=== PATIENT | female | born 2000 | race Caucasian/White ===

== ENCOUNTER 2023-11-14 15:10 | Emergency (ER) | payer OTHER, SELFPAY ==
[2023-11-14 15:16] VITALS: BP 129/87; PULSE 90; TEMP 36.9; O2SAT 97; BMI 41.3
--- NOTE | 2023-11-14 15:20 | ED.GENADUL1 ---
HPI HPI - General Adult General Chief complaint: Extremity Problem, Nontraumatic Stated complaint: UPPER EXTREMITY PAIN Time Seen by Provider: 11/14/23 15:14 Source: patient and family Mode of arrival: walk-in Limitations: no limitations History of Present Illness HPI narrative: Patient is a 23-year-old female who is presenting to the ER with chief complaint Left wrist pain for several months. Patient is not working. Patient is at bedside. Patient has a smaller baby at home. Patient went to an urgent care over a month ago for evaluation. Patient was given Star wrap, told to do ice, anti-inflammatories, and follow-up. Patient's having no pain or improvement to left wrist, she's having pains her carpal tunnel and also to the dorsal aspect of her left wrist and hand as well. Patient has not seen an orthopedic surgeon. Patient has no PCP. Patient is presenting to the Emergency Room today because she has no follow-up and is still having pain. Patient is right-hand dominant. No other acute complaints. Patient have intermittent pain radiating down her left hand and upper left forearm. No swelling, no ecchymosis. All systems are negative except as noted/marked. All systems reviewed and otherwise negative. Nurses note and vital signs reviewed and patient is not hypoxic. General: The patient appears well and in no apparent distress. Patient is resting comfortably on cart. Patient is not toxic, lethargic, or listless Skin: Warm, dry, no pallor noted. There is no rash noted. No petechiae, purpura. Head: Normocephalic, atraumatic Eye: Normal conjunctiva, no drainage, EOMI. PERRL Ears, Nose, Mouth, and Throat: oral mucosa is moist. Nares patent. Mouth without vesicles. Cardiovascular: Regular Rate and Rhythm, no murmur, gallop, rub Respiratory: Patient is in no distress, no accessory muscle use, lungs are clear to auscultation, no wheezing, rales or rhonchi Back: non-tender, GI: Obese, soft, no tenderness Musculoskeletal: Patient has full range of motion of all of the extremities, no motor, sensory, or focal neurological deficits Paresthesias to left hand and wrist. Positive Tinel's sign, positive Phalen sign. Patient does have pain and intermittent paresthesias along median nerve distribution. Full range of motion of left shoulder and elbow no difficulty. No pain ulnar groove on the left. Normal cap refill all 5 fingers left hand. No ecchymosis or swelling to left wrist. No pain to the anatomical snuffbox or axial loading of left thumb. Neurological: A&O x4, normal speech Psychiatric: Cooperative Related Data Previous Rx's ?Medication ?Instructions ?Recorded methylprednisolone 4 mg tablets in 4 mg PO DAILY 6 days #21 ea 11/14/23 a dose pack (Medrol (Ketan)) Allergies Allergy/AdvReac Type Severity Reaction Status Date / Time Penicillins AdvReac Mild Verified 11/14/23 15:15 Opioid HPI Opioid Management Most Recent Opioid Data: No Data to Display Exam Constitutional Vital Signs, click to edit/add: Last Vital Signs Temp 98.5 F 11/14/23 15:16 Pulse 88 11/14/23 16:38 Resp 18 11/14/23 16:38 BP 126/88 11/14/23 16:38 Pulse Ox 98 11/14/23 16:38 O2 Del Method Room Air 11/14/23 15:16 Course Vital Signs Vital signs: Vital Signs Temperature 98.5 F 11/14/23 15:16 Pulse Rate 90 11/14/23 15:16 Respiratory Rate 18 11/14/23 15:16 Blood Pressure 129/87 11/14/23 15:16 Pulse Oximetry 97 11/14/23 15:16 Oxygen Delivery Method Room Air 11/14/23 15:16 Temperature 98.5 F 11/14/23 15:16 Pulse Rate 88 11/14/23 16:38 Respiratory Rate 18 11/14/23 16:38 Blood Pressure 126/88 11/14/23 16:38 Pulse Oximetry 98 11/14/23 16:38 Oxygen Delivery Method Room Air 11/14/23 15:16 Medical Decision Making MDM Narrative Medical decision making narrative: Procedure note: patient was placed in left upper wrist splint. Splint was assisted with . the patient was neurovascularly intact before and after the splint was placed. the affected bones/injured area had proper alignment in a splint. Education on splint care at home was given at bedside. Patient and family have no questions at discharge. Patient was educatted using ice, anti-inflammatories. Patient had an appointment made for Dr. Guerra on Thursday at 11 AM. Patient was placed on a Medrol Dosepak. Patient was told that she must use ice, and stretching exercises with this will not get better. Patient understands importance of following up with orthopedic surgeon on Thursday and how maximiliano she is to follow-up with orthopedic surgeon in 2 days. Patient said that she will be at that appointment. Discharge Plan Discharge Stand Alone Forms: Portal Instructions Chief Complaint: Extremity Problem, Nontraumatic Clinical Impression: Carpal tunnel syndrome on left, Pain in left wrist Patient Disposition: Home, Self-Care Time of Disposition Decision: 16:36 Condition: Fair Prescriptions / Home Meds: New methylprednisolone [Medrol (Ketan)] 4 mg tablets,dose pack 4 mg PO DAILY 6 Days Qty: 21 0RF Rx Instructions: as directed Print Language: Martiniquais Instructions: Wrist Injury (ED), Carpal Tunnel Syndrome (DC) Additional Instructions: You have an appointment at 11:[address] Guerra Continue ice 20 minutes on, 20 minutes off. Use your wrist splint until following up with orthopedic surgery. A Medrol Dosepak was ordered to attempt to help with pain and inflammation. You need to see orthopedic surgery for definitive treatment. Referrals: CESIA FELIX [Primary Care Provider] - 1 week Vineet Guerra MD [Physician] - 1 week Discharge Date/Time: 11/14/23 16:46
[2023-11-14 16:38] VITALS: BP 126/88; PULSE 88; O2SAT 98
== END 2023-11-14 16:46 | disposition home or self-care (01) ==
PROVIDERS: Emergency Provider Emergency Medicine; PCP Internal Medicine
DX: G56.02 Carpal tunnel syndrome, left upper limb (principal); M25.532 Pain in left wrist; E66.9 Obesity, unspecified; Z68.41 Body mass index [BMI] 40.0-44.9, adult
CPT/HCPCS: 99283

== ENCOUNTER 2023-11-16 12:54 | Outpatient (OUT) | payer OTHER, SELFPAY ==
--- NOTE | 2023-11-16 | XR_ITS ---
The [address] [address] Patient Name: LATONYA MUIR MRN: [id number] date: 2000 Sex: F Assigned Patient Location: Current Patient Location: Accession/Order Number: [id number] Exam Date: 11/16/2023 12:59 Report Date: 11/16/2023 14:15 At the request of: MARYJANE KATZ Procedure: XR wrist LT min 3V EXAM: XR wrist LT min 3V HISTORY: LEFT WRIST PAIN COMPARISON: None. TECHNIQUE: 3 views of the left wrist were obtained. FINDINGS: There is no evidence of an acute fracture or dislocation. No significant osseous abnormality is identified. Ulnar minus variance is present. The joint spaces are intact throughout the wrist. No abnormal soft tissue calcifications are present. XR/XR wrist LT min 3V IMPRESSION: No acute fracture or dislocation. The joint spaces are intact. Electronically authenticated by: RAFIQ COTTO Date: 11/16/2023 14:15
== END 2023-11-16 12:55 | disposition home or self-care (01) ==
LOC: EC 12:54
PROVIDERS: PCP Internal Medicine; Visit Provider Orthopaedic Surgery
DX: M25.532 Pain in left wrist (principal)
CPT/HCPCS: 73110

== ENCOUNTER 2023-12-23 14:30 | Emergency (ER) | payer OTHER, SELFPAY ==
[2023-12-23 14:35] VITALS: BP 106/92; PULSE 102; TEMP 36.8; O2SAT 98; BMI 41.3
--- NOTE | 2023-12-23 14:42 | ED.LOWEXI1 ---
HPI HPI - Extremity Injury (Lower) General Chief Complaint: Extremity Injury, Lower Stated Complaint: LOWER EXTREMITY PAIN, LEFT Time Seen by Provider: 12/23/23 14:31 Limitations: no limitations History of Present Illness HPI Narrative: Patient is a 23-year-old female who presents to the emergency department for left leg pain after falling yesterday. She states she was walking [place] of [place] when her left leg slid, she sustained a superficial abrasion to the right anterior leg but states that her left leg bent back beneath her and she hyperextended at the knee. She complains of pain over the left hamstring and left posterior knee. In order to demonstrate her injury, patient stands at the bedside on both legs equally and is able to ambulate, extend and flex the leg with no difficulty. She has no concern for . She had no other associated injuries. No medications taken prior to arrival. Related Data Previous Rx's ?Medication ?Instructions ?Recorded methylprednisolone 4 mg tablets in 4 mg PO DAILY 6 days #21 ea 11/14/23 a dose pack (Medrol (Keatn)) ketorolac 10 mg tablet 10 mg PO TID PRN pain #10 tabs 12/23/23 methocarbamol 750 mg tablet 750 mg PO TID PRN pain #20 tabs 12/23/23 Allergies Allergy/AdvReac Type Severity Reaction Status Date / Time Penicillins AdvReac Mild Verified 11/14/23 15:15 Opioid HPI Opioid Management Most Recent Pain and Opioid Data: Last ED Pain Assessment 12/23/23 14:47 Review of Systems ROS Constitutional Denies: fever or chills Ears, nose, mouth, and throat Denies: throat pain or nasal congestion Cardiovascular Denies: chest pain Respiratory Denies: shortness of breath or cough Gastrointestinal Denies: nausea or vomiting Musculoskeletal Reports: extremity pain and limited range of motion; Denies: back pain, neck pain, extremity swelling or joint pain Integumentary/Breast Denies: rash Neurological Denies: headache Hematologic/Lymphatic Denies: easy bruising or easy bleeding Allergic/Immunologic Denies: hives Exam Narrative Exam Narrative: Gen.: Awake, alert, in no distress Head: Normocephalic, atraumatic ENT: Moist mucous membranes Respiratory: No respiratory distress Extremities: Patient stands at the bedside on her right leg and fully extends the left leg out in front of her with painful flexion at the left hip and knee. No obvious deformity or shortening of the hamstring. No swelling of the thigh noted. No bony tenderness of the left anterior knee or tibia. No obvious deformity. Faint abrasion noted to the right anterior tibia Psych: Normal mood and affect Neuro: No focal neuro deficit Skin: Warm, dry, intact Constitutional Vital Signs, click to edit/add: Last Vital Signs Temp 98.2 F 12/23/23 14:35 Pulse 102 H 12/23/23 14:35 Resp 18 12/23/23 14:35 BP 106/92 H 12/23/23 14:35 Pulse Ox 98 12/23/23 14:35 O2 Del Method Room Air 12/23/23 14:35 Course Vital Signs Vital signs: Vital Signs Temperature 98.2 F 12/23/23 14:35 Pulse Rate 102 H 12/23/23 14:35 Respiratory Rate 18 12/23/23 14:35 Blood Pressure 106/92 H 12/23/23 14:35 Pulse Oximetry 98 12/23/23 14:35 Oxygen Delivery Method Room Air 12/23/23 14:35 Temperature 98.2 F 12/23/23 14:35 Pulse Rate 102 H 12/23/23 14:35 Respiratory Rate 18 12/23/23 14:35 Blood Pressure 106/92 H 12/23/23 14:35 Pulse Oximetry 98 12/23/23 14:35 Oxygen Delivery Method Room Air 12/23/23 14:35 MDM - Extremity Injury (Lower) MDM Narrative Medical decision making narrative: Patient with no evidence of fracture or dislocation. Patient placed in an Star wrap of the left knee and remains neurovascularly intact. Rest, ice, elevate. Exam is consistent with hamstring strain. Follow-up with orthopedics if symptoms persist, no indication of neurodeficit or complete muscle tear at this time. Medical Records Attestation: I reviewed the patient's medical records. Imaging Data xr tib/fib: Attestation: I have reviewed the pertinent imaging results. Radiologist's impression: ITS Impressions Femur X-Ray 12/23/23 14:45 IMPRESSION: 1. No acute bone abnormality or significant degenerative joint disease. Electronically authenticated by: MARYJANE NICHOLS Date: 12/23/2023 15:39 Tibia/Fibula X-Ray 12/23/23 14:45 IMPRESSION: 1. No acute bone abnormality or significant degenerative joint disease. Electronically authenticated by: MARYJANE NICHOLS Date: 12/23/2023 15:39 Discharge Plan Discharge Stand Alone Forms: Portal Instructions Chief Complaint: Extremity Injury, Lower Clinical Impression: Left hamstring muscle strain, Hyperextension injury of left knee Patient Disposition: Home, Self-Care Time of Disposition Decision: 15:51 Condition: Good Prescriptions / Home Meds: New ketorolac 10 mg tablet 10 mg PO TID PRN (Reason: pain) Qty: 10 0RF methocarbamol 750 mg tablet 750 mg PO TID PRN (Reason: pain) Qty: 20 0RF No Action methylprednisolone [Medrol (Ketan)] 4 mg tablets,dose pack 4 mg PO DAILY 6 Days Qty: 21 0RF Rx Instructions: as directed Print Language: Thai Instructions: Hamstring Injury (ED) Referrals: CESIA FELIX [Primary Care Provider] - 1 week
--- NOTE | 2023-12-23 14:45 | XR_ITS ---
The [address] [address] Patient Name: LATONYA MUIR MRN: [id number] date: 2000 Sex: F Assigned Patient Location: ER Current Patient Location: ER Accession/Order Number: [id number] Exam Date: 12/23/2023 14:53 Report Date: 12/23/2023 15:39 At the request of: MCKAY HANSEN Procedure: XR tibia fibula LT 2V PROCEDURE: XR tibia fibula LT 2V, XR femur LT 2V HISTORY: fall , leg pain after hyperextension injury COMPARISON: None. FINDINGS: BONES:No fracture, acute abnormality, or significant arthropathy. SOFT TISSUES:No visible soft tissue swelling. EFFUSION:None visible. OTHER: Negative. XR/XR tibia fibula LT 2V IMPRESSION: 1. No acute bone abnormality or significant degenerative joint disease. Electronically authenticated by: MARYJANE NICHOLS Date: 12/23/2023 15:39
--- NOTE | 2023-12-23 14:45 | XR_ITS ---
The [address] [address] Patient Name: LATONYA MUIR MRN: [id number] date: 2000 Sex: F Assigned Patient Location: ER Current Patient Location: ER Accession/Order Number: [id number] Exam Date: 12/23/2023 14:53 Report Date: 12/23/2023 15:39 At the request of: MCKAY HANSEN Procedure: XR femur LT 2V PROCEDURE: XR tibia fibula LT 2V, XR femur LT 2V HISTORY: fall , leg pain after hyperextension injury COMPARISON: None. FINDINGS: BONES:No fracture, acute abnormality, or significant arthropathy. SOFT TISSUES:No visible soft tissue swelling. EFFUSION:None visible. OTHER: Negative. XR/XR femur LT 2V IMPRESSION: 1. No acute bone abnormality or significant degenerative joint disease. Electronically authenticated by: MARYJANE NICHOLS Date: 12/23/2023 15:39
== END 2023-12-23 16:19 | disposition home or self-care (01) ==
PROVIDERS: Emergency Provider Emergency Medicine; PCP Internal Medicine
DX: S76.812A Strain of other specified muscles, fascia and tendons at thigh level, left thigh, initial encounter (principal); S89.92XA Unspecified injury of left lower leg, initial encounter; W19.XXXA Unspecified fall, initial encounter
CPT/HCPCS: 73552; 73590; 99283

== ENCOUNTER 2024-06-13 20:09 | Emergency (ER) | payer OTHER, SELFPAY ==
[2024-06-13 20:15] VITALS: BP 134/90; PULSE 77; TEMP 37.2; O2SAT 97; BMI 41.3
--- OUTSIDE RECORDS SUMMARY | 2024-06-13 20:15 | XMS_ITS | CCD ---
Author Organization [facility] Inform ion [facility] Care Team Providers Care Clerical Support Name Role Phone Self, Self Primary Care Provider Unavailabl e DOUG, [phone] DANY Attending Unav ailable SELF, SELF Referring Unavailable SELF, SELF Primary Care Unavailable SELF, SELF Primary Care Unavailable DOUG, [phone] DANY Referring Unav ailable DOUG, [phone] DANY Attending Unav ailable SELF, SELF Primary Care Unavailable NICOLE GUERRERO Attending Unavailable BIN OGDEN Attending Unavailable SELF, SELF Referring Unavailable SELF, SELF Primary Care Unavailable SELF, SELF Primary Care Unavailable DOUG, [phone] DANY Referring Unav ailable DOUG, [phone] DANY Attending Unav ailable NO FAMILY, PHYSICIAN Primary Care Provider Unava ilable MD Nickolas Ewing Attending Provider NO FAMILY, PHYSICIAN Primary Care Provider Unava ilable DO Esperanza Farah Attending Provider DO Dani Henderson Attending Provider Crystal SUPERVISOR CAB-BC Milli E Emergency Provider 1( [phone] DO Stone Victoria Emergency Provider Unavai DO Dani Arthur Admit Provider MD Jackie Gates Attending Provider NO FAMILY, PHYSICIAN Primary Care Unavailable Nickolas Ewing Attending Unavailable Nickolas Ewing Admitting Unavailable Esperanza Farah Attending Unavailable Esperanza Farah Admitting Unavailable NO FAMILY, PHYSICIAN Primary Care Unavailable NO FAMILY, PHYSICIAN Primary Care Unavailable Bulladeleore, Milli E Attending Unavailable Bulladeleore, Milli E Admitting Unavailable Jackie Gates Admitting Unavailable NO FAMILY, PHYSICIAN Primary Care Unavailable Jackie Gates Attending Unavailable Dani Henderson Attending Unavailable Dani Henderson Admitting Unavailable Stone Victoria Attending Unavailable Stone Victoria Admitting Unavailable NO FAMILY, PHYSICIAN Primary Care Unavailable Dani Henderson Attending Unavailable Dani Henderson Admitting Unavailable NO FAMILY, PHYSICIAN Primary Care Unavailable Chepe Contreras Attending Unavailable SAGAR KINGSTON Attending Unavailable DANI HENDERSON Attending Unavailable DANI HENDERSON Referring Unavailable Allergies Allergy Classification Reported Allergen(s) Allergy Type Date of Onset Reaction(s) Facility (2 sources) cultivated mushroom extract Drug Allergy 08-29-2022 [facility] (6 sources) Penicillins; Translations: [Penicillins] Propensity to adverse reactions to drug 08-29-2022 [facility] (7 sources) Influenza Virus Vaccines; Translations: [Influenza Virus Vaccines] Propensity to adverse reactions 10-08-2022 [facility] (6 sources) Mushroom (edible); Translations: [mushroom] Allergy to substance 01-14-2023 [facility] Medications Current Medications Medication Drug Class(es) Dates Sig (Normalized) Sig (Original) calcium carbonate 1250 mg oral tablet (2 sources) take 1 tablet by mouth once daily oyster shell calcium 1250 (500 Ca) MG tablet Take 1 tablet by mouth daily. 0 Active cefdinir 300 mg oral capsule (1 source) Cephalosporin Antibacterial Start: 04-04-2023 cefdinir 300 mg Cap Refills(s) 0 Start Date: 04/04/23 Status: Ordered cephalexin 500 mg oral capsule (3 sources) Cephalosporin Antibacterial Start: 02-10-2023 take 500 mg by mouth three times daily Cephalexin Active 500 MG PO Three times daily 06 02February 10, 2023 12:00am ibuprofen 600 mg oral tablet (3 sources) Nonsteroidal Anti-inflammatory Drug Start: 04-04-2023 ibuprofen 600 mg Tab Refills(s) 0 Start Date: 04/04/23 Status: Ordered Start: 02-17-2023 Ibuprofen Acti ve 600 MG PO Every 6 hours February 17, 2023 12:00am do not exceed 4 doses in a 24 hour period [id number] Fumarate-Fa () 28-800 mg-mcg Tablet (3 sources) Start: 02-10-2023 take 1 tablet by mouth once daily [id number]-Vjvefwd Fumarate-Fa () 28-800 mg-mcg Tablet Active 1 TAB PO Daily February 10, 2023 12:00am MV-Min-Fe Fum-FA-DHA ( 1 PO) (2 sources) MV-Min- Fe Fum-FA-DHA ( 1 PO) Take by mouth daily. 0 Active Completed/Discontinued Medications Medication Drug Class(es) Dates Sig (Normalized) Sig (Original) azithromycin 500 mg oral tablet (1 source) Macrolide Antimicrobial Start: 08-30-2022 End: 08-30-2022 take 2 tablets by mouth once azithromycin 500 MG tablet Take 2 tablets by mouth once for 1 dose. 2 tablet 0 08/30/2022 08/30/2022 Ciprofloxacin-Dexam ethasone (Ciprodex) 0.3-0.1 % drops,suspension (3 sources) Start: 02-16-2023 End: 02-19-2023 Ciprofloxacin-Dexa methasone (Ciprodex) 0.3-0.1 % drops,suspension Discontinued 4 DROPS EAR-RIGHT Twice daily 7.5 February 16, 2023 12:00am February 19, 2023 9:35am Start: 02-16-2023 Ciprofloxacin- Dexamethasone (Ciprodex) 0.3-0.1 % drops,suspension Active 4 DROPS EAR-RIGHT Twice daily 7.5 February 16, 2023 12:00am Problems Active Problems Problem Classification Problem Date Documented Date Episodic/Chronic Abdominal pain (1 source) Left upper quadrant pain; Translations: [Left upper quadrant pain] Onset: 04-04-2023 Episodic Genitourinary symptoms and ill-defined conditions (3 sources) Asymptomatic bacteriuria; Translations: [Bacteriuria] 02-10-2023 Episodic Headache; including migraine (3 sources) Headache; Translations: [Headache] 02-10-2023 Episodic Headache; including migraine (1 source) Headache; including migraine; Translations: [Headache, unspecified] Onset: 02-10-2023 Other ear and sense organ disorders (3 sources) Otitis externa; Translations: [Unspecified otitis externa, unspecified ear] 02-16-2023 Chronic Other female genital disorders (4 sources) H/O: normal delivery; Translations: [Status post normal vaginal delivery] 02-19-2023 Episodic Other and delivery including normal (3 sources) Normal ; Translations: [Encounter for supervision of normal first , second trimester] Onset: 09-12-2022 Episodic Sexually transmitted infections (not HIV or hepatitis) (5 sources) Chlamydial infection of lower genitourinary tract; Translations: [Chlamydial vulvovaginitis] Onset: 08-30-2022 Episodic Unclassified (1 source) Encounter for care and examination of lactating mother; Translations: [Encounter for care and examination of lactating mother] Onset: 02-21-2023 Unclassified (1 source) Encounter for supervision of normal first , third trimester; Translations: [Encounter for supervision of normal first , third trimester] Onset: 02-16-2023 Unclassified (1 source) Otalgia, right ear; Translations: [Otalgia, right ear] Onset: 02-16-2023 Unclassified (1 source) Encounter for screening for Streptococcus B; Translations: [Encounter for screening for Streptococcus B] Onset: 01-23-2023 Unclassified (1 source) False labor before 37 completed weeks of gestation, third trimester; Translations: [False labor before 37 completed weeks of gestation, third trimester] Onset: 01-14-2023 Unclassified (1 source) Decreased movements, second trimester, fetus 1; Translations: [Decreased movements, second trimester, fetus 1] Onset: 10-08-2022 Past or Other Problems Problem Classification Problem Date Documented Da te Episodic/Chronic Other inflammatory condition of skin (2 sources) Sunburn, unspecified; Translations: [Sunburn, unspecified] Onset: 12-05-2021 Episodic Viral infection (1 source) Disease caused by 2019-nCoV; Translations: [COVID-19] Onset: 04-04-2023 NEGATED: Highlighted row has been ruled out!Unclassified (2 sources) No known active problems 08-29-2022 Results Test Name Value Interpretation Reference Range Facility Family Medicine Office/Clini c Noteon 04-04-2023 Family Medicine Office/Clinic Note Chief Complaint exposed to covid HPI Staff 22 year old female presents with being exposed to covid History of Present Illness 22-year-old female to the clinic for concerns over COVID-19. Her 6-week-old daughter was tested positive at [facility] emergency department last evening. Patient has had upper respiratory symptoms with a mild cough. She also complains of discomfort in the left upper quadrant. The abdominal complaint and the 6-week old daughter that tested positive for COVID which we are uncertain whether or not RSV exist we have decided we will send both the patient and her daughter to the emergency department at [facility] here in [place]. Review of Systems PHQ Score Initial Depression Screen Score: 0 Constitutional: Denies fevers. Patient has felt ill with cold type symptoms over the past 2 to 3 days. Head/Ears/Nose/Thr oat: Patient complains of a sore throat, upper respiratory congestion. Respiratory: Denies shortness of breath. She does have a mild cough Cardiovascular: Complains of discomfort in the chest though does not complain of heaviness GI/ : See HPI above Musculoskeletal: Denies Joint pain, Denies muscle pain Physical Exam Vitals & Measurements T: 36.2 ?C(Oral) HR: 94(Peripheral) BP: 120/80 SpO2: 99% HT: 68 in HT: 172 cm WT: 115 kg WT: 253 lb BMI: 38.87 Primary assessment: Airway patent. Respirations unlabored. Normal respiratory effort Constitutional: Vital signs reviewed. Well appearing. No distress. Psychiatric: Mental status appropriate. Normal affect Skin: Warm and dry. Thorax/ Respiratory: Respiratory effort non-labored. Neurologic: Alert and oriented Assessment/Plan 1. COVID-19 (U07.1: COVID-19) 2. Abdominal pain, LUQ (R10.12: Left upper quadrant pain) -Based on the symptoms completely decided we will send her to [facility] emergency department for evaluation of her abdominal discomfort, discomfort in the chest. Will be going directly to the emergency department here in [place] for further evaluation and treatment. Follow-up No qualifying data available Problem List/Past Medical History Ongoing No qualifying data Historical No qualifying data Medications cefdinir 300 mg Cap ibuprofen 600 mg Tab Allergies No Known Allergies Social History Tobacco Never (less than 100 in lifetime) Tobacco Use:. Never Smokeless Tobacco Use:., 04/04/2023 Immunizations Vaccine Date Status Comments influenza virus vaccine, inactivated - Not Given Contraindicated - Do not give SARS-CoV-2 mRNA (tomarknameran 5y-11y) vac - Not Given Contraindicated - Do not give Normal [facility] Comment on above: Result Comment: Elec tronically Signed By: Ben RAY, Chepe W.\.br\Date and Time Signed: 04/04/23 12:59 EDT Patient Letter FTon 2022 Patient Letter [facility] [address], [place] [address] April 04, 2023 DUSTIN MUIR [address] [place] [address] : 2000 Please excuse DUSTIN MUIR from school . Date and/or Time of Absence: From: April 02, 2023 To: including 2022. She has tested positive for Covid 19 today Restrictions: None Comments: Please excuse due to an acute illness. Provider Signature: Chepe VicenteAntione [facility] [address] [place] [address] [facility] Basophils Auto (Bld) [#/Vol] Ordered By: Dani Hendersno on 02-18-2023 Basophils (Bld) [#/Vol] 0.0 10*3/uL 0.0-0.2 [facility] Basophils/100 WBC Auto (Bld) Ordered By: Dani Henderson on 02-18-2023 Basophils/100 WBC (Bld) 0.3 % . [facility] Complete Blood Count Auto Di ffon 02-18-2023 Basophils (Bld) [#/Vol] 0.0 10*3/uL Normal 0.0-0.2 [facility] Comment on above: Order Comment: Comme nt Draw at 630 am Result Comment: PERF ORMED BY: [place] [address] PATHOLOGIST CELL SUPPORT OPERATOR EFRAÍN RANGEL M.D. Performed By: #### C BC #### [address] Basophils/100 WBC (Bld) 0.3 % Normal . [facility] Comment on above: Order Comment: Comme nt Draw at 630 am Performed By: #### C BC #### [address] Eosinophils (Bld) [#/Vol] 0.1 10*3/uL Normal 0.0-0.45 [facility] Comment on above: Order Comment: Comme nt Draw at 630 am Performed By: #### C BC #### [address] Eosinophils/100 WBC (Bld) 0.6 % Normal . [facility] Comment on above: Order Comment: Comme nt Draw at 630 am Performed By: #### C BC #### [address] Erythrocyte distribution width (RBC) [Ratio] 14.2 % Normal 11.9-15.3 [facility] Comment on above: Order Comment: Comme nt Draw at 630 am Performed By: #### C BC #### [address] Hematocrit (Bld) [Volume fraction] 30.6 % Low 34.0-46.4 [facility] Comment on above: Order Comment: Comme nt Draw at 630 am Performed By: #### C BC #### [address] Hemoglobin (Bld) [Mass/Vol] 10.3 g/dL Low 11.8-15.4 [facility] Comment on above: Order Comment: Comme nt Draw at 630 am Performed By: #### C BC #### [address] Lymphocytes (Bld) [#/Vol] 2.1 10*3/uL Normal 1.00-4.8 [facility] Comment on above: Order Comment: Comme nt Draw at 630 am Performed By: #### C BC #### [address] Lymphocytes/100 WBC (Bld) 17.9 % Normal . [facility] Comment on above: Order Comment: Comme nt Draw at 630 am Performed By: #### C BC #### [address] MCH (RBC) [Entitic mass] 26.9 pg Normal 24.7-34.3 [facility] Comment on above: Order Comment: Comme nt Draw at 630 am Performed By: #### C BC #### [address] MCV (RBC) [Entitic vol] 79.9 fL Low 80-100 [facility] Comment on above: Order Comment: Comme nt Draw at 630 am Performed By: #### C BC #### [address] Mean Corpuscular HGB Conc 33.7 g/dL Normal 32.0-35.0 [facility] Comment on above: Order Comment: Comme nt Draw at 630 am Performed By: #### C BC #### [address] Monocytes (Bld) [#/Vol] 0.8 10*3/uL Normal 0.0-0.8 [facility] Comment on above: Order Comment: Comme nt Draw at 630 am Performed By: #### C BC #### [address] Monocytes/100 WBC (Bld) 6.7 % Normal . [facility] Comment on above: Order Comment: Comme nt Draw at 630 am Performed By: #### C BC #### [address] Neutrophils (Bld) [#/Vol] 8.7 10*3/uL High 1.8-7.7 [facility] Comment on above: Order Comment: Comme nt Draw at 630 am Performed By: #### C BC #### [address] Neutrophils/100 WBC (Bld) 74.5 % Normal . [facility] Comment on above: Order Comment: Comme nt Draw at 630 am Performed By: #### C BC #### [address] NRBC% 0.0 /100{WBC} Normal 0-0.5 [facility] Comment on above: Order Comment: Comme nt Draw at 630 am Performed By: #### C BC #### [address] Platelet mean volume (Bld) [Entitic vol] 9.8 fL Normal 6.3-10.7 [facility] Comment on above: Order Comment: Comme nt Draw at 630 am Performed By: #### C BC #### [facility] [address] Platelets (Bld) [#/Vol] 173 10*3/uL Normal 150-450 [facility] Comment on above: Order Comment: Comme nt Draw at 630 am Performed By: #### C BC #### [address] RBC (Bld) [#/Vol] 3.83 10*6/uL Normal 3.60-5.00 [facility] Comment on above: Order Comment: Comme nt Draw at 630 am Performed By: #### C BC #### [address] WBC (Bld) [#/Vol] 11.7 10*3/uL High 3.8-11.6 [facility] Comment on above: Order Comment: Comme nt Draw at 630 am Performed By: #### C BC #### [address] Eosinophils Auto (Bld) [#/Vo l]Ordered By: Dani Henderson on 02-18-2023 Eosinophils (Bld) [#/Vol] 0.1 10*3/uL 0.0-0.45 [facility] Eosinophils/100 WBC Auto (Bl d)Ordered By: Dani Henderson on 02-18-2023 Eosinophils/100 WBC (Bld) 0.6 % . [facility] Erythrocyte distribution wid th Auto (RBC) [Ratio]Ordered By: Dani Henderson on 02-18-2023 Erythrocyte distribution width (RBC) [Ratio] 14.2 % 11.9-15.3 [facility] Hematocrit Auto (Bld) [Volum e fraction]Ordered By: Dani Henderson on 02-18-2023 Hematocrit (Bld) [Volume fraction] 30.6 % 34.0-46.4 [facility] Hemoglobin [Mass/volume] in BloodOrdered By: Dani Henderson on 02-18-2023 Hemoglobin (Bld) [Mass/Vol] 10.3 g/dL 11.8-15.4 [facility] Leukocytes [#/volume] correc kris for nucleated erythrocytes in Blood by Automated counOrdered By: Dani Henderson on 02-18-2023 WBC corrected for nucl RBC Auto (Bld) [#/Vol] 11.7 10*3/uL 3.8-11.6 [facility] Lymphocytes Auto (Bld) [#/Vo l]Ordered By: Dani Henderson on 02-18-2023 Lymphocytes (Bld) [#/Vol] 2.1 10*3/uL 1.00-4.8 [facility] Lymphocytes/100 WBC Auto (Bl d)Ordered By: Dani Henderson on 02-18-2023 Lymphocytes/100 WBC (Bld) 17.9 % . [facility] MCH Auto (RBC) [Entitic mass ]Ordered By: Dani Henderson on 02-18-2023 MCH (RBC) [Entitic mass] 26.9 pg 24.7-34.3 [facility] MCHC Auto (RBC) [Mass/Vol]Or dered By: Dani Henderson on 02-18-2023 MCHC (RBC) [Mass/Vol] 33.7 g/dL 32.0-35.[address] [facility] MCV Auto (RBC) [Entitic vol] Ordered By: Dani Henderson on 02-18-2023 MCV (RBC) [Entitic vol] 79.9 fL 80-100 [facility] Monocytes Auto (Bld) [#/Vol] Ordered By: Dani Henderson on 02-18-2023 Monocytes (Bld) [#/Vol] 0.8 10*3/uL 0.0-0.8 [facility] Monocytes/100 WBC Auto (Bld) Ordered By: Dani Henderson on 02-18-2023 Monocytes/100 WBC (Bld) 6.7 % . [facility] Neutrophils Auto (Bld) [#/Vo l]Ordered By: Dani Henderson on 02-18-2023 Neutrophils (Bld) [#/Vol] 8.7 10*3/uL 1.8-7.7 [facility] Neutrophils/100 WBC Auto (Bl d)Ordered By: Dani Henderson on 02-18-2023 Neutrophils/100 WBC (Bld) 74.5 % . [facility] Nucleated erythrocytes [Pres ence] in Blood by Automated countOrdered By: Dani Henderson on 02-18-2023 Nucleated RBC Auto Ql (Bld) 0.0 /100{WBC} 0-0.5 [facility] Platelet mean volume Auto (B ld) [Entitic vol]Ordered By: Dani Henderson on 02-18-2023 Platelet mean volume (Bld) [Entitic vol] 9.8 fL 6.3-10.7 [facility] Platelets Auto (Bld) [#/Vol] Ordered By: Dani Henderson on 02-18-2023 Platelets (Bld) [#/Vol] 173 10*3/uL 150-450 [facility] RBC Auto (Bld) [#/Vol]Ordere d By: Dani Henderson on 02-18-2023 RBC (Bld) [#/Vol] 3.83 10*6/uL 3.60-5.00 [facility] WBC Auto (Bld) [#/Vol]Ordere d By: Dani Henderson on 02-18-2023 WBC (Bld) [#/Vol] 11.7 10*3/uL 3.8-11.6 [facility] ABO/RH Typeon 02-17-2023 ABO and Rh group Nom (Bld) Blood group O Rh(D) positive Normal [facility] Comment on above: Result Comment: PERF ORMED BY: [facility] [address] [place] [address] PATHOLOGIST CELL SUPPORT OPERATOR EFRAÍN RANGEL M.D. Amphetamine Screen Ql (U)Ord ered By: Dani Henderson on 02-16-2023 Amphetamines Ql (U) Negative Negative [facility] Automated erythrocytes count in urine sediment (number/area)Ordered By: Dani Henderson on 02-16-2023 RBC Auto (Urine sed) [#/Area] 1-2 [HPF] 0-4 [facility] Automated leukocytes count i n urine sediment (number/area)Ordered By: Dani Henderson on 02-16-2023 WBC Auto (Urine sed) [#/Area] 10-19 [HPF] 0-4 [facility] Automated urine hyaline cast s count (number/volume)Ordered By: Dani Henderson on 02-16-2023 Hyaline casts Auto (U) [#/Vol] 5-9 [LPF] 0-1 [facility] Automated urine sediment sameer cium oxalate crystal count by microscopy (number/high powOrdered By: Dani Henderson on 02-16-2023 Calcium oxalate crystals LM.HPF (Urine sed) [#/Area] 2+ [HPF] [facility] Barbiturates [Presence] in U rine by Screen methodOrdered By: Dani Henderson on 02-16-2023 Barbiturates Screen Ql (U) Negative Negative [facility] Benzodiazepines Screen Ql (U )Ordered By: Dani Henderson on 02-16-2023 Benzodiazepines Ql (U) Negative Negative [facility] Benzoylecgonine [Presence] i n Urine by Screen methodOrdered By: Dani Henderson on 02-16-2023 Benzoylecgonine Screen Ql (U) Negative Negative [facility] Bilirubin Test strip Ql (U)O rdered By: Dani Henderson on 02-16-2023 Bilirubin Ql (U) Negative Negative [facility] Casts typing in urine sedime nt by light microscopyOrdered By: Dani Henderosn on 02-16-2023 Casts LM Nom (Urine sed) None seen [LPF] None S een [facility] Color Auto (U)Ordered By: Saniya Henderson on 02-16-2023 Color (U) Dark yellow Yellow [facility] Complete Blood Count Auto Di ffon 02-16-2023 Basophils (Bld) [#/Vol] 0.0 10*3/uL Normal 0.0-0.2 [facility] Comment on above: Result Comment: PERF ORMED BY: [place] [address] PATHOLOGIST CELL SUPPORT OPERATOR EFRAÍN RANGEL M.D. Performed By: #### C BC #### [facility] [address] [place] [address] [place] #### RPR W RFX #### [facility] , Basophils/100 WBC (Bld) 0.4 % Normal . [facility] Comment on above: Performed By: #### C BC #### [facility] [address] [place] [address] #### RPR W RFX #### [facility] , Eosinophils (Bld) [#/Vol] 0.2 10*3/uL Normal 0.0-0.45 [facility] Comment on above: Performed By: #### C BC #### [address] #### RPR W RFX #### [facility] , Eosinophils/100 WBC (Bld) 2.4 % Normal . [facility] Comment on above: Performed By: #### C BC #### [facility] [address] [place] [address] #### RPR W RFX #### [facility] , Erythrocyte distribution width (RBC) [Ratio] 13.9 % Normal 11.9-15.3 [facility] Comment on above: Performed By: #### C BC #### [facility] [address] [place] [address] [place] #### RPR W RFX #### [facility] , Hematocrit (Bld) [Volume fraction] 31.8 % Low 34.0-46.4 [facility] Comment on above: Performed By: #### C BC #### [facility] [address] [place] [address] [place] #### RPR W RFX #### [facility] , Hemoglobin (Bld) [Mass/Vol] 10.7 g/dL Low 11.8-15.4 [facility] Comment on above: Performed By: #### C BC #### [facility] [address] [place] [address] #### RPR W RFX #### [facility] , Lymphocytes (Bld) [#/Vol] 1.8 10*3/uL Normal 1.00-4.8 [facility] Comment on above: Performed By: #### C BC #### [address] #### RPR W RFX #### [facility] , Lymphocytes/100 WBC (Bld) 19.8 % Normal . [facility] Comment on above: Performed By: #### C BC #### [address] #### RPR W RFX #### [facility] , MCH (RBC) [Entitic mass] 27.1 pg Normal 24.7-34.3 [facility] Comment on above: Performed By: #### C BC #### [facility] [address] [place] [address] #### RPR W RFX #### [facility] , MCV (RBC) [Entitic vol] 80.5 fL Normal 80-100 [facility] Comment on above: Performed By: #### C BC #### [facility] [address] [place] [address] #### RPR W RFX #### [facility] , Mean Corpuscular HGB Conc 33.7 g/dL Normal 32.0-35.0 [facility] Comment on above: Performed By: #### C BC #### [facility] [address] [place] [address] #### RPR W RFX #### [facility] , Monocytes (Bld) [#/Vol] 0.5 10*3/uL Normal 0.0-0.8 [facility] Comment on above: Performed By: #### C BC #### [facility] [address] [place] [address] [place] #### RPR W RFX #### [facility] , Monocytes/100 WBC (Bld) 6.0 % Normal . [facility] Comment on above: Performed By: #### C BC #### [facility] [address] [place] [address] [place] #### RPR W RFX #### [facility] , Neutrophils (Bld) [#/Vol] 6.4 10*3/uL Normal 1.8-7.7 [facility] Comment on above: Performed By: #### C BC #### [facility] [address] [place] [address] #### RPR W RFX #### [facility] , Neutrophils/100 WBC (Bld) 71.4 % Normal . [facility] Comment on above: Performed By: #### C BC #### [facility] [address] [place] [address] #### RPR W RFX #### [facility] , NRBC% 0.1 /100{WBC} Normal 0-0.5 [facility] Comment on above: Performed By: #### C BC #### [facility] [address] [place] [address] [place] #### RPR W RFX #### [facility] , Platelet mean volume (Bld) [Entitic vol] 10.0 fL Normal 6.3-10.7 [facility] Comment on above: Performed By: #### C BC #### [facility] [address] [place] [address] [place] #### RPR W RFX #### [facility] , Platelets (Bld) [#/Vol] 178 10*3/uL Normal 150-450 [facility] Comment on above: Performed By: #### C BC #### [facility] [address] [place] [address] #### RPR W RFX #### [facility] , RBC (Bld) [#/Vol] 3.96 10*6/uL Normal 3.60-5.00 [facility] Comment on above: Performed By: #### C BC #### [facility] [address] [place] [address] #### RPR W RFX #### [facility] , WBC (Bld) [#/Vol] 8.9 10*3/uL Normal 3.8-11.6 [facility] Comment on above: Performed By: #### C BC #### [address] #### RPR W RFX #### [facility] , Dipstick and Microscopicon 0 02-16-2023 Appearance (U) Cloudy Critically abnormal Clear [facility] Comment on above: Order Comment: Name Collection Type:: Clean-Voided Midstream Performed By: #### A NAIMA OBKAROLYNS #### [address] Bacteria,Urine 1+ High None Seen [facility] Comment on above: Order Comment: Name Collection Type:: Clean-Voided Midstream Performed By: #### A NAIMA OBUDS #### [address] Bilirubin,Urine Negative Normal Negative [facility] Comment on above: Order Comment: Name Collection Type:: Clean-Voided Midstream Performed By: #### A NAIMA OBUDS #### [address] Calcium Oxalate Crystals,Urine 2+ Normal [facility] Comment on above: Order Comment: Name Collection Type:: Clean-Voided Midstream Performed By: #### A NAIMA OBUDS #### [facility] [address] [place] [address] [place] Color (U) Dark Yellow Critically abnormal Yellow [facility] Comment on above: Order Comment: Name Collection Type:: Clean-Voided Midstream Performed By: #### A DDONUAPLUS, OBUDS #### [facility] [address] [place] [address] [place] Glucose Ql (U) Normal Normal Normal [facility] Comment on above: Order Comment: Name Collection Type:: Clean-Voided Midstream Performed By: #### A DDONUAPLUS, OBUDS #### [place] [address] [place] Hyaline Casts,Urine 5-9 High 0-1 [facility] Comment on above: Order Comment: Name Collection Type:: Clean-Voided Midstream Performed By: #### A DDONUAPLUS, OBUDS #### [facility] [address] [place] [address] [place] Ketones Ql (U) Trace High Negative [facility] Comment on above: Order Comment: Name Collection Type:: Clean-Voided Midstream Performed By: #### A DDONUAPLUS, OBUDS #### [place] [address] [place] Leukocyte esterase Test strip Ql (U) Negative Normal Negative [facility] Comment on above: Order Comment: Name Collection Type:: Clean-Voided Midstream Performed By: #### A DDONUAPLUS, OBUDS #### [place] [address] [place] Nitrite,Urine Negative Normal Negative [facility] Comment on above: Order Comment: Name Collection Type:: Clean-Voided Midstream Performed By: #### A DDONUAPLUS, OBUDS #### [place] [address] [place] Occult Blood,Urine Negative Normal Negative [facility] Comment on above: Order Comment: Name Collection Type:: Clean-Voided Midstream Result Comment: PERF ORMED BY: [place] [address] PATHOLOGIST CELL SUPPORT OPERATOR EFRAÍN RANGEL M.D. Performed By: #### A NAIMA OBUDS #### [address] Othe Crystals,Urine None Seen Normal [facility] Comment on above: Order Comment: Name Collection Type:: Clean-Voided Midstream Performed By: #### A NAIMA OBUDS #### [address] Other Casts,Urine None Seen Normal None Seen [facility] Comment on above: Order Comment: Name Collection Type:: Clean-Voided Midstream Result Comment: PERF ORMED BY: [place] [address] PATHOLOGIST CELL SUPPORT OPERATOR EFRAÍN RANGEL M.D. Performed By: #### A NAIMA OBUDS #### [address] pH (U) 6.0 [pH] Normal 5.0-9.0 [facility] Comment on above: Order Comment: Name Collection Type:: Clean-Voided Midstream Performed By: #### A NAIMA OBUDS #### [address] Protein (U) [Mass/Vol] 30 mg/dL High Negative [facility] Comment on above: Order Comment: Name Collection Type:: Clean-Voided Midstream Performed By: #### A DDONUAPLUS OBUDS #### [address] RBC,Urine 1-2 Normal 0-4 [facility] Comment on above: Order Comment: Name Collection Type:: Clean-Voided Midstream Performed By: #### A DDONUAPLUS OBUDS #### [address] Specificy [place],Urine 1.041 High 1.001-1.030 [facility] Comment on above: Order Comment: Name Collection Type:: Clean-Voided Midstream Performed By: #### A DDONUAPLUS OBUDS #### [facility] [address] [place] [address] Squamous Epithelial Cell,Urine Innumerable High 0-2 [facility] Comment on above: Order Comment: Name Collection Type:: Clean-Voided Midstream Performed By: #### A DDONUAPLUS OBUDS #### [facility] [address] [place] [address] Urobilinogen,Urine Normal Normal Normal [facility] Comment on above: Order Comment: Name Collection Type:: Clean-Voided Midstream Performed By: #### A DDONUAPLUS OBUDS #### [address] WBC,Urine 10-19 High 0-4 [facility] Comment on above: Order Comment: Name Collection Type:: Clean-Voided Midstream Performed By: #### A DDONUAPLUS OBUDS #### [address] Ketones Auto test strip (U) [Mass/Vol]Ordered By: Dani Henderson on 02-16-2023 Ketones (U) [Mass/Vol] Trace Negative [facility] Nitrite Test strip Ql (U)Ord ered By: Dani Henderson on 02-16-2023 Nitrite Ql (U) Negative Negative [facility] OB Urine Drug Screen (NO THC )on 02-16-2023 Amphetamine Screen,Urine Negative Normal Negative [facility] Comment on above: Performed By: #### A DDONUAPLUS OBUDS #### [address] Barbiturate Screen,Urine Negative Normal Negative [facility] Comment on above: Performed By: #### A DDONUAPLUS OBUDS #### [address] Benzodiazepines Screen,Urine Negative Normal Negative [facility] Comment on above: Performed By: #### A DDONUAPLUS OBUDS #### [address] [place] [address] [place] Cocaine Screen,Urine Negative Normal Negative [facility] Comment on above: Performed By: #### A DDONUAPLUS, OBUDS #### [facility] [address] Opiate Screen,Urine Negative Normal Negative [facility] Comment on above: Performed By: #### A DDONUAPLUS, OBUDS #### [address] Phencyclidine Screen, Urine Negative Normal Negative [facility] Comment on above: Result Comment: Thes e are unconfirmed results and should not be used for legal purposes. Drug Cut-Off Concentration: AMPH 1000 ng/mL TUNDE 200 ng/mL LOVE 200 ng/mL COCM 300 ng/mL OP 300 ng/mL PCP 25 ng/mL PERFORMED BY: [place] [address] PATHOLOGIST CELL SUPPORT OPERATOR EFRAÍN RANGEL M.D. Performed By: #### A DDONUAPLUS, OBUDS #### [address] Opiates [Presence] in Urine by Screen methodOrdered By: Dani Henderson on 02-16-2023 Opiates Screen Ql (U) Negative Negative [facility] Phencyclidine Screen Ql (U)O rdered By: Dani Henderson on 02-16-2023 Phencyclidine Ql (U) Negative Negative [facility] Comment on above: These are unconfirme d results and should not be used for legal purposes. Drug Cut-Off Concentration: AMPH 1000 ng/mL TUNDE 200 ng/mL LOVE 200 ng/mL COCM 300 ng/mL OP 300 ng/mL PCP 25 ng/mL Protein Auto test strip (U) [Mass/Vol]Ordered By: Dani Henderson on 02-16-2023 Protein (U) [Mass/Vol] 30 mg/dL Negative [facility] RPR w/rfx to Quant TP Abson 02-16-2023 RPR, Rfx Quant RPR Non-Reactive Normal Non Reactive [facility] Comment on above: Result Comment: Perf ormed at: CB - [facility] [address] [id number] Life Consultant: Abad Dueñas PhD, Phone: [phone] PERFORMED BY: [place] [address] PATHOLOGIST CELL SUPPORT OPERATOR EFRAÍN RANGEL M.D. Performed By: #### C BC #### [place] [address] [place] #### RPR W RFX #### [facility] , Reagin Ab [Presence] in Seru m by RPROrdered By: Dani Henderson on 02-16-2023 Reagin Ab RPR Ql (S) Non-Reactive Non Reactive [facility] Comment on above: Performed at: - [facility] [address] [id number] Director: Abad Dueñas PhD, Phone: [phone] Specific gravity Auto test s trip (U) [Rel density]Ordered By: Dani Henderson on 02-16-2023 Specific gravity (U) [Rel density] 1.041 1.001-1.030 [facility] Squamous epithelial cells de tection in urine sediment by light microscopyOrdered By: Dani Henderson on 02-16-2023 Epithelial cells.squamous LM Ql (Urine sed) Innumerable [HPF] 0-2 [facility] Urine bacteria detection by automated methodOrdered By: Dani Henderson on 02-16-2023 Bacteria Auto Ql (U) 1+ None Seen [facility] Urine clarity by refractomet ry automatedOrdered By: Dani Henderson on 02-16-2023 Clarity Refractometry automated (U) Cloudy Clear [facility] Urine glucose measurement by automated test strip (mass/volume)Ordered By: Dani Henderson on 02-16-2023 Glucose Auto test strip (U) [Mass/Vol] Normal mg/dL Normal [facility] Urine hemoglobin detection b y automated test stripOrdered By: Dani Henderson on 02-16-2023 Hemoglobin Auto test strip Ql (U) Negative Negative [facility] Urine leukocyte esterase det ection by automated test stripOrdered By: Dani Henderson on 02-16-2023 Leukocyte esterase Auto test strip Ql (U) Negative Negative [facility] Urine sediment crystal ident ification by light microscopyOrdered By: Dani Henderson on 02-16-2023 Crystals LM Nom (Urine sed) None seen [HPF] [facility] Urobilinogen Auto test strip (U) [Mass/Vol]Ordered By: Dani Henderson on 02-16-2023 Urobilinogen (U) [Mass/Vol] Normal mg/dL Normal [facility] pH Auto test strip (U)Ordere d By: Dani Henderson on 02-16-2023 pH (U) 6.0 [pH] 5.0-9.0 [facility] Automated erythrocytes count in urine sediment (number/area)Ordered By: Milli Rojas on 02-10-2023 RBC Auto (Urine sed) [#/Area] 0-1 [HPF] 0-4 [facility] Automated leukocytes count i n urine sediment (number/area)Ordered By: Milli Rojas on 02-10-2023 WBC Auto (Urine sed) [#/Area] 3-4 [HPF] 0-4 [facility] Bilirubin Test strip Ql (U)O rdered By: Milli Rojas on 02-10-2023 Bilirubin Ql (U) Negative Negative [facility] Color Auto (U)Ordered By: Lissy Rojas on 02-10-2023 Color (U) Yellow Yellow [facility] Dipstick and Microscopicon 0 02-10-2023 Appearance (U) Cloudy Critically abnormal Clear [facility] Comment on above: Order Comment: Name Collection Type:: Clean-Voided Midstream Performed By: #### A DDONUAPLUS #### [facility] [address] [id number] [place] Bacteria,Urine 1+ High None Seen [facility] Comment on above: Order Comment: Name Collection Type:: Clean-Voided Midstream Performed By: #### A DDONUAPLUS #### [facility] [address] [id number] [place] Bilirubin,Urine Negative Normal Negative [facility] Comment on above: Order Comment: Name Collection Type:: Clean-Voided Midstream Performed By: #### A DDONUAPLUS #### [facility] [address] [place] [address] [place] Color (U) Yellow Normal Yellow [facility] Comment on above: Order Comment: Name Collection Type:: Clean-Voided Midstream Performed By: #### A DDONUAPLUS #### [facility] [address] [place] [address] [place] Glucose Ql (U) Normal Normal Normal [facility] Comment on above: Order Comment: Name Collection Type:: Clean-Voided Midstream Performed By: #### A DDONUAPLUS #### [facility] [address] [place] [address] [place] Hyaline Casts,Urine 9-19 High 0-8 [facility] Comment on above: Order Comment: Name Collection Type:: Clean-Voided Midstream Result Comment: PERF ORMED BY: [place] [address] PATHOLOGIST CELL SUPPORT OPERATOR EFRAÍN RANGEL M.D. Performed By: #### A DDONUAPLUS #### [facility] [address] [place] [address] [place] Ketones Ql (U) Trace High Negative [facility] Comment on above: Order Comment: Name Collection Type:: Clean-Voided Midstream Performed By: #### A DDONUAPLUS #### [facility] [address] [place] [address] [place] Leukocyte esterase Test strip Ql (U) 1+ High Negative [facility] Comment on above: Order Comment: Name Collection Type:: Clean-Voided Midstream Performed By: #### A DDONUAPLUS #### [facility] [address] [place] [address] [place] Nitrite,Urine Negative Normal Negative [facility] Comment on above: Order Comment: Name Collection Type:: Clean-Voided Midstream Performed By: #### A DDONUAPLUS #### [facility] [address] [place] [address] [place] Occult Blood,Urine Negative Normal Negative [facility] Comment on above: Order Comment: Name Collection Type:: Clean-Voided Midstream Result Comment: PERF ORMED BY: [place] [address] PATHOLOGIST CELL SUPPORT OPERATOR EFRAÍN RANGEL M.D. Performed By: #### A DDONUAPLUS #### [address] pH (U) 6.5 [pH] Normal 5.0-9.0 [facility] Comment on above: Order Comment: Name Collection Type:: Clean-Voided Midstream Performed By: #### A DDONUAPLUS #### [address] Protein,Urine Trace High Negative [facility] Comment on above: Order Comment: Name Collection Type:: Clean-Voided Midstream Performed By: #### A DDONUAPLUS #### [address] RBC LM.HPF (Urine sed) [#/Area] 0 /[HPF] Normal 0-4 [facility] Comment on above: Order Comment: Name Collection Type:: Clean-Voided Midstream Performed By: #### A DDONUAPLUS #### [address] Specificy [place],Urine 1.023 Normal 1.001-1.030 [facility] Comment on above: Order Comment: Name Collection Type:: Clean-Voided Midstream Performed By: #### A DDONUAPLUS #### [place] [address] [place] Squamous Epithelial Cell,Urine 10-19 High 0-2 [facility] Comment on above: Order Comment: Name Collection Type:: Clean-Voided Midstream Performed By: #### A DDONUAPLUS #### [address] Urobilinogen,Urine Normal Normal Normal [facility] Comment on above: Order Comment: Name Collection Type:: Clean-Voided Midstream Performed By: #### A DDONUAPLUS #### [place] [address] [place] WBC,Urine 3-4 Normal 0-4 [facility] Comment on above: Order Comment: Name Collection Type:: Clean-Voided Midstream Performed By: #### A DDONUAPLUS #### [facility] [address] [place] [id number] [facility] Ketones Auto test strip (U) [Mass/Vol]Ordered By: iMlli Rojas on 02-10-2023 Ketones (U) [Mass/Vol] Trace Negative [facility] - UrinalysisOrder ed By: Milli Rojas on 02-10-2023 Hyaline casts LM Ql (Urine sed) 9-19 [LPF] 0-8 [facility] Nitrite Test strip Ql (U)Ord ered By: Milli Rojas on 02-10-2023 Nitrite Ql (U) Negative Negative [facility] Protein Auto test strip (U) [Mass/Vol]Ordered By: Milli Rojas on 02-10-2023 Protein (U) [Mass/Vol] Trace mg/dL Negative [facility] Specific gravity Auto test s trip (U) [Rel density]Ordered By: Milli Rojas on 02-10-2023 Specific gravity (U) [Rel density] 1.023 1.001-1.030 [facility] Squamous epithelial cells de tection in urine sediment by light microscopyOrdered By: Milli Rojas on 02-10-2023 Epithelial cells.squamous LM Ql (Urine sed) 10-19 [HPF] 0-2 [facility] Urine bacteria detection by automated methodOrdered By: Milli Rojas on 02-10-2023 Bacteria Auto Ql (U) 1+ None Seen [facility] Urine clarity by refractomet ry automatedOrdered By: Milli Rojas on 02-10-2023 Clarity Refractometry automated (U) Cloudy Clear [facility] Urine glucose measurement by automated test strip (mass/volume)Ordered By: Milli Rojas on 02-10-2023 Glucose Auto test strip (U) [Mass/Vol] Normal mg/dL Normal [facility] Urine hemoglobin detection b y automated test stripOrdered By: Milli Rojas on 02-10-2023 Hemoglobin Auto test strip Ql (U) Negative Negative [facility] Urine leukocyte esterase det ection by automated test stripOrdered By: Milliginger Burgosberkley on 02-10-2023 Leukocyte esterase Auto test strip Ql (U) 1+ Negative [facility] Urobilinogen Auto test strip (U) [Mass/Vol]Ordered By: Milli Crystal on 02-10-2023 Urobilinogen (U) [Mass/Vol] Normal mg/dL Normal [facility] pH Auto test strip (U)Ordere d By: Milli Burgosberkley on 02-10-2023 pH (U) 6.5 [pH] 5.0-9.0 [facility] No Panel InformationOrdered By: Dani Henderson on 01-23-2023 Group B Streptococcus Culture No Group B Beta Streptococcus Isolated 3 Days [facility] Strep B Culture (PCN Allergi c)on 01-23-2023 Strep B Culture (PCN Allergic) No Group B Beta Streptococcus Isolated 3 Days PERFORMED BY: [place] [address] PATHOLOGIST CELL SUPPORT OPERATOR EFRAÍN RANGEL M.D. Normal [facility] Comment on above: Performed By: #### C USTB(PCN) #### [address] Amorphous urine sedimentOrde red By: Esperanza Farah on 01-14-2023 Amorphous sediment LM Ql (Urine sed) 4+ [LPF] [facility] Amphetamine Screen Ql (U)Ord ered By: Esperanza Farah on 01-14-2023 Amphetamines Ql (U) Negative Negative [facility] Automated erythrocytes count in urine sediment (number/area)Ordered By: Esperanza Farah on 01-14-2023 RBC Auto (Urine sed) [#/Area] 3-4 [HPF] 0-4 [facility] Automated leukocytes count i n urine sediment (number/area)Ordered By: Esperanza Farah on 01-14-2023 WBC Auto (Urine sed) [#/Area] 10-19 [HPF] 0-4 [facility] Automated urine hyaline cast s count (number/volume)Ordered By: Esperanza Farah on 01-14-2023 Hyaline casts Auto (U) [#/Vol] None seen [LPF] 0-1 [facility] Barbiturates [Presence] in U rine by Screen methodOrdered By: Esperanza Farah on 01-14-2023 Barbiturates Screen Ql (U) Negative Negative [facility] Benzodiazepines Screen Ql (U )Ordered By: Esperanza Farah on 01-14-2023 Benzodiazepines Ql (U) Negative Negative [facility] Benzoylecgonine [Presence] i n Urine by Screen methodOrdered By: Esperanza Farah on 01-14-2023 Benzoylecgonine Screen Ql (U) Negative Negative [facility] Bilirubin Auto test strip Ql (U)Ordered By: Esperanza Farah on 01-14-2023 Bilirubin Ql (U) Negative Negative [facility] Casts typing in urine sedime nt by light microscopyOrdered By: Esperanza Farah on 01-14-2023 Casts LM Nom (Urine sed) None seen [LPF] None S een [facility] Dipstick and Microscopicon 0 01-14-2023 Amorphous Sediment,Urine 4+ Normal [facility] Comment on above: Order Comment: Name Collection Type:: Clean-Voided Midstream Performed By: #### A NAIMA OBUDS #### [facility] [address] [place] [address] [place] Appearance (U) Cloudy Critically abnormal Clear [facility] Comment on above: Order Comment: Name Collection Type:: Clean-Voided Midstream Performed By: #### A NAIMA OBUDS #### [facility] [address] [id number] [place] Bacteria,Urine 2+ High None Seen [facility] Comment on above: Order Comment: Name Collection Type:: Clean-Voided Midstream Performed By: #### A NAIMA OBUDS #### [facility] [address] [place] [id number] [place] Bilirubin,Urine Negative Normal Negative [facility] Comment on above: Order Comment: Name Collection Type:: Clean-Voided Midstream Performed By: #### A NAIMA OBUDS #### [facility] [address] [place] [address] [place] Color (U) Yellow Normal Yellow [facility] Comment on above: Order Comment: Name Collection Type:: Clean-Voided Midstream Performed By: #### A DDONUAPLUS, OBUDS #### [facility] [address] [place] [address] [place] Glucose Ql (U) Normal Normal Normal [facility] Comment on above: Order Comment: Name Collection Type:: Clean-Voided Midstream Performed By: #### A DDONUAPLUS, OBUDS #### [place] [address] [place] Hyaline Casts,Urine None Seen Normal 0-1 [facility] Comment on above: Order Comment: Name Collection Type:: Clean-Voided Midstream Performed By: #### A DDONUAPLUS, OBUDS #### [facility] [address] [place] [address] [place] Ketones Ql (U) Negative Normal Negative [facility] Comment on above: Order Comment: Name Collection Type:: Clean-Voided Midstream Performed By: #### A DDONUAPLUS, OBUDS #### [place] [address] [place] Leukocyte esterase Test strip Ql (U) Negative Normal Negative [facility] Comment on above: Order Comment: Name Collection Type:: Clean-Voided Midstream Performed By: #### A DDONUAPLUS, OBUDS #### [facility] [address] [place] [address] [place] Nitrite,Urine Negative Normal Negative [facility] Comment on above: Order Comment: Name Collection Type:: Clean-Voided Midstream Performed By: #### A DDONUAPLUS, OBUDS #### [place] [address] [place] Occult Blood,Urine Negative Normal Negative [facility] Comment on above: Order Comment: Name Collection Type:: Clean-Voided Midstream Result Comment: PERF ORMED BY: [place] [address] PATHOLOGIST CELL SUPPORT OPERATOR EFRAÍN RANGEL M.D. Performed By: #### A NAIMA OBUDS #### [address] Othe Crystals,Urine None Seen Normal [facility] Comment on above: Order Comment: Name Collection Type:: Clean-Voided Midstream Performed By: #### A DDONUAPLUS OBUDS #### [address] Other Casts,Urine None Seen Normal None Seen [facility] Comment on above: Order Comment: Name Collection Type:: Clean-Voided Midstream Result Comment: PERF ORMED BY: [place] [address] PATHOLOGIST CELL SUPPORT OPERATOR EFRAÍN RANGEL M.D. Performed By: #### A NAIMA OBUDS #### [address] pH (U) 6.0 [pH] Normal 5.0-9.0 [facility] Comment on above: Order Comment: Name Collection Type:: Clean-Voided Midstream Performed By: #### A DDONUAPLUS OBUDS #### [address] Protein (U) [Mass/Vol] 30 mg/dL High Negative [facility] Comment on above: Order Comment: Name Collection Type:: Clean-Voided Midstream Performed By: #### A DDONUAPLUS, OBUDS #### [place] [address] [place] RBC,Urine 3-4 Normal 0-4 [facility] Comment on above: Order Comment: Name Collection Type:: Clean-Voided Midstream Performed By: #### A DDONUAPLUS, OBUDS #### [place] [address] [place] Specificy [place],Urine 1.030 Normal 1.001-1.030 [facility] Comment on above: Order Comment: Name Collection Type:: Clean-Voided Midstream Performed By: #### A DDONUAPLUS, OBUDS #### [facility] [address] [place] [address] [place] Squamous Epithelial Cell,Urine Innumerable High 0-2 [facility] Comment on above: Order Comment: Name Collection Type:: Clean-Voided Midstream Performed By: #### A DDONUAPLUS, OBUDS #### [facility] [address] [place] [address] [place] Urobilinogen,Urine Normal Normal Normal [facility] Comment on above: Order Comment: Name Collection Type:: Clean-Voided Midstream Performed By: #### A DDONUAPLUS, OBUDS #### [place] [address] [place] WBC,Urine 10-19 High 0-4 [facility] Comment on above: Order Comment: Name Collection Type:: Clean-Voided Midstream Performed By: #### A DDONUAPLUS, OBUDS #### [address] Ketones Auto test strip (U) [Mass/Vol]Ordered By: Esperanza Farah on 01-14-2023 Ketones (U) [Mass/Vol] Negative Negative [facility] OB Urine Drug Screen (NO THC )on 01-14-2023 Amphetamine Screen,Urine Negative Normal Negative [facility] Comment on above: Performed By: #### A DDONUAPLUS, OBUDS #### [facility] [address] [place] [address] [place] Barbiturate Screen,Urine Negative Normal Negative [facility] Comment on above: Performed By: #### A DDONUAPLUS, OBUDS #### [place] [address] [place] Benzodiazepines Screen,Urine Negative Normal Negative [facility] Comment on above: Performed By: #### A DDONUAPLUS, OBUDS #### [facility] [address] [place] [address] Cocaine Screen,Urine Negative Normal Negative [facility] Comment on above: Performed By: #### A DDONUAPLUS, OBUDS #### [facility] [address] Opiate Screen,Urine Negative Normal Negative [facility] Comment on above: Performed By: #### A DDONUAPLUS, OBUDS #### [facility] [address] Phencyclidine Screen, Urine Negative Normal Negative [facility] Comment on above: Result Comment: Thes e are unconfirmed results and should not be used for legal purposes. Drug Cut-Off Concentration: AMPH 1000 ng/mL TUNDE 200 ng/mL LOVE 200 ng/mL COCM 300 ng/mL OP 300 ng/mL PCP 25 ng/mL PERFORMED BY: [place] [address] PATHOLOGIST CELL SUPPORT OPERATOR EFRAÍN RANGEL M.D. Performed By: #### A DDONUAPLUS, OBUDS #### [place] [address] [place] Opiates [Presence] in Urine by Screen methodOrdered By: Esperanza Farah on 01-14-2023 Opiates Screen Ql (U) Negative Negative [facility] Phencyclidine Screen Ql (U)O rdered By: Esperanza Farah on 01-14-2023 Phencyclidine Ql (U) Negative Negative [facility] Comment on above: These are unconfirme d results and should not be used for legal purposes. Drug Cut-Off Concentration: AMPH 1000 ng/mL TUNDE 200 ng/mL LOVE 200 ng/mL COCM 300 ng/mL OP 300 ng/mL PCP 25 ng/mL Protein Auto test strip (U) [Mass/Vol]Ordered By: Esperanza Farah on 01-14-2023 Protein (U) [Mass/Vol] 30 mg/dL Negative [facility] Squamous epithelial cells de tection in urine sediment by light microscopyOrdered By: Espearnza Farah on 01-14-2023 Epithelial cells.squamous LM Ql (Urine sed) Innumerable [HPF] 0-2 [facility] Urine appearanceOrdered By: Esperanza Farah on 01-14-2023 Appearance (U) Cloudy Clear [facility] Urine bacteria detection by automated methodOrdered By: Esperanza Farah on 01-14-2023 Bacteria Auto Ql (U) 2+ None Seen [facility] Urine colorOrdered By: Joaquín Farah on 01-14-2023 Color (U) Yellow Yellow [facility] Urine glucose measurement by automated test strip (mass/volume)Ordered By: Esperanza Farah on 01-14-2023 Glucose Auto test strip (U) [Mass/Vol] Normal mg/dL Normal [facility] Urine hemoglobin detection b y automated test stripOrdered By: Esperanza Farah on 01-14-2023 Hemoglobin Auto test strip Ql (U) Negative Negative [facility] Urine leukocyte esterase det ection by automated test stripOrdered By: Esperanza Farah on 01-14-2023 Leukocyte esterase Auto test strip Ql (U) Negative Negative [facility] Urine nitrite detection by a utomated test stripOrdered By: Esperanza Farah on 01-14-2023 Nitrite Auto test strip Ql (U) Negative Negative [facility] Urine sediment crystal ident ification by light microscopyOrdered By: Esperanza Farah on 01-14-2023 Crystals LM Nom (Urine sed) None seen [HPF] [facility] Urobilinogen Auto test strip (U) [Mass/Vol]Ordered By: Esperanza Farah on 01-14-2023 Urobilinogen (U) [Mass/Vol] Normal mg/dL Normal [facility] pH Auto test strip (U)Ordere d By: Esperanza Farah on 01-14-2023 pH (U) 1.030 [pH] 1.001-1.030 [facility] pH (U) 6.0 [pH] 5.0-9.0 [facility] Alanine aminotransferase [En zymatic activity/volume] in Serum or PlasmaOrdered By: NICKOLAS EWING on 10-08-2022 ALT [Catalytic activity/Vol] 15 U/L 7-52 [facility] Albumin [Mass/volume] in Ser um or Plasma by Bromocresol green (BCG) dye binding methoOrdered By: NICKOLAS EWING on 10-08-2022 Albumin BCG dye [Mass/Vol] 3.7 g/dL 3.5-5.7 [facility] Alkaline phosphatase [Enzyma tic activity/volume] in Serum or PlasmaOrdered By: NICKOLAS EWING on 10-08-2022 ALP [Catalytic activity/Vol] 48 U/L 34-104 [facility] Amphetamine Screen Ql (U)Ord ered By: NICKOLAS EWING on 10-08-2022 Amphetamines Ql (U) Negative Negative [facility] Aspartate aminotransferase [ Enzymatic activity/volume] in Serum or PlasmaOrdered By: NICKOLAS EWING on 10-08-2022 AST [Catalytic activity/Vol] 16 U/L 13-39 [facility] Barbiturates [Presence] in U rine by Screen methodOrdered By: NICKOLAS EWING on 10-08-2022 Barbiturates Screen Ql (U) Negative Negative [facility] Basophils Auto (Bld) [#/Vol] Ordered By: NICKOLSA EWING on 10-08-2022 Basophils (Bld) [#/Vol] 0.1 10*3/uL 0.0-0.2 [facility] Basophils/100 WBC Auto (Bld) Ordered By: NICKOLAS EWING on 10-08-2022 Basophils/100 WBC (Bld) 1.0 % . [facility] Benzodiazepines Screen Ql (U )Ordered By: NICKOLAS EWING on 10-08-2022 Benzodiazepines Ql (U) Negative Negative [facility] Benzoylecgonine [Presence] i n Urine by Screen methodOrdered By: NICKOLAS EWING on 10-08-2022 Benzoylecgonine Screen Ql (U) Negative Negative [facility] Bilirubin Test strip Ql (U)O rdered By: NICKOLAS EWING on 10-08-2022 Bilirubin Ql (U) Negative Negative [facility] Bilirubin.total [Mass/volume ] in Serum or PlasmaOrdered By: NICKOLAS WEING on 10-08-2022 Bilirubin [Mass/Vol] 0.4 mg/dL 0.3-1.0 [facility] Calcium [Mass/volume] in Ser um or PlasmaOrdered By: NICKOLAS EWING on 10-08-2022 Calcium [Mass/Vol] 9.1 mg/dL 8.6-10.3 [facility] Carbon dioxide, total [Moles /volume] in Serum or PlasmaOrdered By: NICKOLAS EWING on 10-08-2022 CO2 [Moles/Vol] 24.8 mmol/L 21.0-31.0 [facility] Chloride [Moles/volume] in S jessica or PlasmaOrdered By: NICKOLAS EWING on 10-08-2022 Chloride [Moles/Vol] 104 mmol/L 98-107 [facility] Color Auto (U)Ordered By: HUNTER EWING on 10-08-2022 Color (U) Yellow Yellow [facility] Complete Blood Count Auto Di ffon 10-08-2022 Basophils (Bld) [#/Vol] 0.1 10*3/uL Normal 0.0-0.2 [facility] Comment on above: Result Comment: PERF ORMED BY: [place] [address] PATHOLOGIST CELL SUPPORT OPERATOR EFRAÍN RANGEL M.D. Performed By: #### C BC, CMP #### [address] Basophils/100 WBC (Bld) 1.0 % Normal . [facility] Comment on above: Performed By: #### C BC, CMP #### [address] Eosinophils (Bld) [#/Vol] 0.3 10*3/uL Normal 0.0-0.45 [facility] Comment on above: Performed By: #### C BC, CMP #### [place] [address] [place] Eosinophils/100 WBC (Bld) 3.2 % Normal . [facility] Comment on above: Performed By: #### C BC, CMP #### [address] Erythrocyte distribution width (RBC) [Ratio] 13.0 % Normal 11.9-15.3 [facility] Comment on above: Performed By: #### C BC, CMP #### [place] [id number] [place] Hematocrit (Bld) [Volume fraction] 35.4 % Normal 34.0-46.4 [facility] Comment on above: Performed By: #### C BC, CMP #### [address] Hemoglobin (Bld) [Mass/Vol] 11.9 g/dL Normal 11.8-15.4 [facility] Comment on above: Performed By: #### C BC, CMP #### [address] Lymphocytes (Bld) [#/Vol] 1.8 10*3/uL Normal 1.00-4.8 [facility] Comment on above: Performed By: #### C BC, CMP #### [address] Lymphocytes/100 WBC (Bld) 18.7 % Normal . [facility] Comment on above: Performed By: #### C BC, CMP #### [address] MCH (RBC) [Entitic mass] 27.7 pg Normal 24.7-34.3 [facility] Comment on above: Performed By: #### C BC, CMP #### [address] MCV (RBC) [Entitic vol] 82.1 fL Normal 80-100 [facility] Comment on above: Performed By: #### C BC, CMP #### [address] Mean Corpuscular HGB Conc 33.8 g/dL Normal 32.0-35.0 [facility] Comment on above: Performed By: #### C BC, CMP #### [address] Monocytes (Bld) [#/Vol] 0.5 10*3/uL Normal 0.0-0.8 [facility] Comment on above: Performed By: #### C BC, CMP #### [place] [id number] [place] Monocytes/100 WBC (Bld) 5.0 % Normal . [facility] Comment on above: Performed By: #### C BC, CMP #### [facility] [address] Neutrophils (Bld) [#/Vol] 6.8 10*3/uL Normal 1.8-7.7 [facility] Comment on above: Performed By: #### C BC, CMP #### [facility] [address] Neutrophils/100 WBC (Bld) 72.1 % Normal . [facility] Comment on above: Performed By: #### C BC, CMP #### [facility] [address] NRBC% 0.0 /100{WBC} Normal 0-0.5 [facility] Comment on above: Performed By: #### C BC, CMP #### [facility] [address] Platelet mean volume (Bld) [Entitic vol] 8.8 fL Normal 6.3-10.7 [facility] Comment on above: Performed By: #### C BC, CMP #### [address] Platelets (Bld) [#/Vol] 224 10*3/uL Normal 150-450 [facility] Comment on above: Performed By: #### C BC, CMP #### [facility] [address] RBC (Bld) [#/Vol] 4.30 10*6/uL Normal 3.60-5.00 [facility] Comment on above: Performed By: #### C BC, CMP #### [facility] [address] WBC (Bld) [#/Vol] 9.5 10*3/uL Normal 3.8-11.6 [facility] Comment on above: Performed By: #### C BC, CMP #### [facility] [address] Comprehensive Metabolic Pane verenice 10-08-2022 Albumin [Mass/Vol] 3.7 g/dL Normal 3.5-5.7 [facility] Comment on above: Performed By: #### C BC, CMP #### [address] Albumin/Globulin [Mass ratio] 1.1 {ratio} Normal [facility] Comment on above: Performed By: #### C BC, CMP #### [address] ALP [Catalytic activity/Vol] 48 U/L Normal 34-104 [facility] Comment on above: Performed By: #### C BC, CMP #### [address] ALT [Catalytic activity/Vol] 15 U/L Normal 7-52 [facility] Comment on above: Performed By: #### C BC, CMP #### [address] Anion gap [Moles/Vol] 10.8 mmol/L Normal 6.0-15.0 [facility] Comment on above: Performed By: #### C BC, CMP #### [address] AST [Catalytic activity/Vol] 16 U/L Normal 13-39 [facility] Comment on above: Performed By: #### C BC, CMP #### [address] Bilirubin [Mass/Vol] 0.4 mg/dL Normal 0.3-1.0 [facility] Comment on above: Performed By: #### C BC, CMP #### [address] Calcium [Mass/Vol] 9.1 mg/dL Normal 8.6-10.3 [facility] Comment on above: Performed By: #### C BC, CMP #### [address] Chloride [Moles/Vol] 104 mmol/L Normal 98-107 [facility] Comment on above: Performed By: #### C BC, CMP #### [facility] [address] CO2 [Moles/Vol] 24.8 mmol/L Normal 21.0-31.0 [facility] Comment on above: Performed By: #### C BC, CMP #### [facility] [address] Creatinine [Mass/Vol] 0.58 mg/dL Low 0.60-1.[address] [facility] Comment on above: Performed By: #### C BC, CMP #### [facility] [address] [place] [address] [place] Creatinine Clr Calc Pharmacy 191.01 [facility] Comment on above: Result Comment: PERF ORMED BY: [place] [address] PATHOLOGIST CELL SUPPORT OPERATOR EFRAÍN RANGEL M.D. Performed By: #### C BC, CMP #### [facility] [address] [place] [address] [place] GFR/1.73 sq M.predicted MDRD (S/P/Bld) [Vol rate/Area] mL/min/{1.73_m2} [facility] Comment on above: Performed By: #### C BC, CMP #### [address] Globulin (S) [Mass/Vol] 3.4 g/dL Normal [facility] Comment on above: Performed By: #### C BC, CMP #### [facility] [address] [place] [address] [place] Glucose [Mass/Vol] 80 mg/dL Normal 74-109 [facility] Comment on above: Result Comment: Clarissa Glucose Reference Range is dependent on time and content of last meal. Glucose of more than 200 mg/dL in a nonstressed, ambulatory subject supports the diagnosis of Diabetes Mellitus. ADA recommended reference range Performed By: #### C BC, CMP #### [facility] [address] Potassium [Moles/Vol] 3.6 mmol/L Normal 3.5-5.[address] [facility] Comment on above: Performed By: #### C BC, CMP #### [facility] [address] Protein [Mass/Vol] 7.1 g/dL Normal 6.4-8.9 [facility] Comment on above: Performed By: #### C BC, CMP #### [facility] [address] Sodium [Moles/Vol] 136 mmol/L Normal 136-145 [facility] Comment on above: Performed By: #### C BC, CMP #### [facility] [address] Urea nitrogen [Mass/Vol] 5 mg/dL Low 7-25 [facility] Comment on above: Performed By: #### C BC, CMP #### [facility] [address] Creatinine [Mass/volume] in Serum or PlasmaOrdered By: NICKOLAS EWING on 10-08-2022 Creatinine [Mass/Vol] 0.58 mg/dL 0.60-1.[address] [facility] Eosinophils Auto (Bld) [#/Vo l]Ordered By: NICKOLAS EWING on 10-08-2022 Eosinophils (Bld) [#/Vol] 0.3 10*3/uL 0.0-0.45 [facility] Eosinophils/100 WBC Auto (Bl d)Ordered By: NICKOLAS EWING on 10-08-2022 Eosinophils/100 WBC (Bld) 3.2 % . [facility] Erythrocyte distribution wid th Auto (RBC) [Ratio]Ordered By: NICKOLAS EWING on 10-08-2022 Erythrocyte distribution width (RBC) [Ratio] 13.0 % 11.9-15.3 [facility] Globulin Calc (S) [Mass/Vol] Ordered By: NICKOLAS EWING on 10-08-2022 Globulin (S) [Mass/Vol] 3.4 g/dL [facility] Glucose [Mass/volume] in Ser um or PlasmaOrdered By: NICKOLAS EWING on 10-08-2022 Glucose [Mass/Vol] 80 mg/dL 74-109 [facility] Comment on above: ADA recommended refe rence rangeRandom Glucose Reference Range is dependent on time and content of last meal. Glucose of more than 200 mg/dL in a nonstressed, ambulatory subject supports the diagnosis of Diabetes Mellitus. Hematocrit Auto (Bld) [Volum e fraction]Ordered By: NICKOLAS EWING on 10-08-2022 Hematocrit (Bld) [Volume fraction] 35.4 % 34.0-46.4 [facility] Hemoglobin [Mass/volume] in BloodOrdered By: NICKOLAS EWING on 10-08-2022 Hemoglobin (Bld) [Mass/Vol] 11.9 g/dL 11.8-15.4 [facility] Ketones Auto test strip (U) [Mass/Vol]Ordered By: NICKOLAS EWING on 10-08-2022 Ketones (U) [Mass/Vol] Trace Negative [facility] - Chemistry and C hemistry - challengeOrdered By: NICKOLAS EWING on 10-08-2022 GFR/1.73 sq M.predicted MDRD (S/P/Bld) [Vol rate/Area] mL/min/{1.73_m2} [facility] Leukocytes [#/volume] correc kris for nucleated erythrocytes in Blood by Automated counOrdered By: NICKOLAS EWING on 10-08-2022 WBC corrected for nucl RBC Auto (Bld) [#/Vol] 9.5 10*3/uL 3.8-11.6 [facility] Lymphocytes Auto (Bld) [#/Vo l]Ordered By: NICKOLAS EWING on 10-08-2022 Lymphocytes (Bld) [#/Vol] 1.8 10*3/uL 1.00-4.8 [facility] Lymphocytes/100 WBC Auto (Bl d)Ordered By: NICKOLAS EWING on 10-08-2022 Lymphocytes/100 WBC (Bld) 18.7 % . [facility] MCH Auto (RBC) [Entitic mass ]Ordered By: NICKOLAS EWING on 10-08-2022 MCH (RBC) [Entitic mass] 27.7 pg 24.7-34.3 [facility] MCHC Auto (RBC) [Mass/Vol]Or dered By: NICKOLAS EWING on 10-08-2022 MCHC (RBC) [Mass/Vol] 33.8 g/dL 32.0-35.[address] [facility] MCV Auto (RBC) [Entitic vol] Ordered By: NICKOLAS EWING on 10-08-2022 MCV (RBC) [Entitic vol] 82.1 fL 80-100 [facility] Monocytes Auto (Bld) [#/Vol] Ordered By: NICKOLAS EWING on 10-08-2022 Monocytes (Bld) [#/Vol] 0.5 10*3/uL 0.0-0.8 [facility] Monocytes/100 WBC Auto (Bld) Ordered By: NICKOLAS EWING on 10-08-2022 Monocytes/100 WBC (Bld) 5.0 % . [facility] Neutrophils Auto (Bld) [#/Vo l]Ordered By: NICKOLAS EWING on 10-08-2022 Neutrophils (Bld) [#/Vol] 6.8 10*3/uL 1.8-7.7 [facility] Neutrophils/100 WBC Auto (Bl d)Ordered By: NICKOLAS EWING on 10-08-2022 Neutrophils/100 WBC (Bld) 72.1 % . [facility] Nitrite Test strip Ql (U)Ord ered By: NCIKOLAS EWING on 10-08-2022 Nitrite Ql (U) Negative Negative [facility] No Panel InformationOrdered By: NICKOLAS EWING on 10-08-2022 Pharmacy Creatinine Clearance (Chem 191.01 [facility] Nucleated erythrocytes [Pres ence] in Blood by Automated countOrdered By: NICKOLAS EWING on 10-08-2022 Nucleated RBC Auto Ql (Bld) 0.0 /100{WBC} 0-0.5 [facility] OB Urine Drug Screen (NO THC )on 10-08-2022 Amphetamine Screen,Urine Negative Normal Negative [facility] Comment on above: Performed By: #### A DDONUAPLUS, OBUDS #### [address] Barbiturate Screen,Urine Negative Normal Negative [facility] Comment on above: Performed By: #### A DDONUAPLUS, OBUDS #### [facility] [address] [place] [address] [place] Benzodiazepines Screen,Urine Negative Normal Negative [facility] Comment on above: Performed By: #### A DDONUAPLUS, OBUDS #### [place] [address] [place] Cocaine Screen,Urine Negative Normal Negative [facility] Comment on above: Performed By: #### A DDONUAPLUS, OBUDS #### [facility] [address] [place] [address] Opiate Screen,Urine Negative Normal Negative [facility] Comment on above: Performed By: #### A DDONUAPLUS, OBUDS #### [address] Phencyclidine Screen, Urine Negative Normal Negative [facility] Comment on above: Result Comment: Thes e are unconfirmed results and should not be used for legal purposes. Drug Cut-Off Concentration: AMPH 1000 ng/mL TUNDE 200 ng/mL LOVE 200 ng/mL COCM 300 ng/mL OP 300 ng/mL PCP 25 ng/mL PERFORMED BY: [place] [address] PATHOLOGIST CELL SUPPORT OPERATOR EFRAÍN RANGEL M.D. Performed By: #### A DDONUAPLUS, OBUDS #### [address] Opiates [Presence] in Urine by Screen methodOrdered By: NICKOLAS EWING on 10-08-2022 Opiates Screen Ql (U) Negative Negative [facility] Phencyclidine Screen Ql (U)O rdered By: NICKOLAS EWING on 10-08-2022 Phencyclidine Ql (U) Negative Negative [facility] Comment on above: These are unconfirme d results and should not be used for legal purposes. Drug Cut-Off Concentration: AMPH 1000 ng/mL TUNDE 200 ng/mL LOVE 200 ng/mL COCM 300 ng/mL OP 300 ng/mL PCP 25 ng/mL Platelet mean volume Auto (B ld) [Entitic vol]Ordered By: NICKOLAS EWING on 10-08-2022 Platelet mean volume (Bld) [Entitic vol] 8.8 fL 6.3-10.7 [facility] Platelets Auto (Bld) [#/Vol] Ordered By: NICKOLAS EWING on 10-08-2022 Platelets (Bld) [#/Vol] 224 10*3/uL 150-450 [facility] Potassium [Moles/volume] in Serum or PlasmaOrdered By: NICKOLAS EWING on 10-08-2022 Potassium [Moles/Vol] 3.6 mmol/L 3.5-5.[address] [facility] Protein Auto test strip (U) [Mass/Vol]Ordered By: NICKOLAS EWING on 10-08-2022 Protein (U) [Mass/Vol] Negative Negative [facility] Protein [Mass/volume] in Ser um or PlasmaOrdered By: NICKOLAS EWING on 10-08-2022 Protein [Mass/Vol] 7.1 g/dL 6.4-8.9 [facility] RBC Auto (Bld) [#/Vol]Ordere d By: NICKOLAS EWING on 10-08-2022 RBC (Bld) [#/Vol] 4.30 10*6/uL 3.60-5.00 [facility] Serum or plasma albumin/glob ulin mass ratioOrdered By: NICKOLAS EWING on 10-08-2022 Albumin/Globulin [Mass ratio] 1.1 {ratio} [facility] Serum or plasma anion gap de terminationOrdered By: NICKOLAS EWING on 10-08-2022 Anion gap [Moles/Vol] 10.8 mmol/L 6.0-15.0 [facility] Sodium [Moles/volume] in Ser um or PlasmaOrdered By: NICKOLAS EWING on 10-08-2022 Sodium [Moles/Vol] 136 mmol/L 136-145 [facility] Specific gravity Auto test s trip (U) [Rel density]Ordered By: NICKOLAS EWING on 10-08-2022 Specific gravity (U) [Rel density] 1.021 1.001-1.030 [facility] Urea nitrogen [Mass/volume] in Serum or PlasmaOrdered By: NICKOLAS EWING on 10-08-2022 Urea nitrogen [Mass/Vol] 5 mg/dL 02-10 [facility] Urinalysison 10-08-2022 Appearance (U) Clear Normal Clear [facility] Comment on above: Order Comment: Name Collection Type:: Clean-Voided Midstream Performed By: #### A DDONUAPLUS OBUDS #### [facility] [address] [place] [address] [place] Bilirubin,Urine Negative Normal Negative [facility] Comment on above: Order Comment: Name Collection Type:: Clean-Voided Midstream Performed By: #### A DDONUAPLUS OBUDS #### [facility] [address] [place] [address] [place] Color (U) Yellow Normal Yellow [facility] Comment on above: Order Comment: Name Collection Type:: Clean-Voided Midstream Performed By: #### A DDONUAPLUS OBUDS #### [facility] [address] [place] [address] [place] Glucose Ql (U) Normal Normal Normal [facility] Comment on above: Order Comment: Name Collection Type:: Clean-Voided Midstream Performed By: #### A DDONUAPLUS OBUDS #### [facility] [address] [place] [address] [place] Ketones Ql (U) Trace High Negative [facility] Comment on above: Order Comment: Name Collection Type:: Clean-Voided Midstream Performed By: #### A DDONUAPLUS, OBUDS #### [facility] [address] [place] [address] [place] Leukocyte esterase Test strip Ql (U) Negative Normal Negative [facility] Comment on above: Order Comment: Name Collection Type:: Clean-Voided Midstream Performed By: #### A DDONUAPLUS, OBUDS #### [facility] [address] [place] [address] [place] Nitrite,Urine Negative Normal Negative [facility] Comment on above: Order Comment: Name Collection Type:: Clean-Voided Midstream Performed By: #### A DDONUAPLUS, OBUDS #### [place] [address] [place] Occult Blood,Urine Negative Normal Negative [facility] Comment on above: Order Comment: Name Collection Type:: Clean-Voided Midstream Result Comment: PERF ORMED BY: [place] [address] PATHOLOGIST CELL SUPPORT OPERATOR EFRAÍN RANGEL M.D. Performed By: #### A DDONUAPLUS OBUDS #### [address] pH (U) 6.5 [pH] Normal 5.0-9.0 [facility] Comment on above: Order Comment: Name Collection Type:: Clean-Voided Midstream Performed By: #### A DDONUAPLUS OBUDS #### [address] Protein,Urine Negative Normal Negative [facility] Comment on above: Order Comment: Name Collection Type:: Clean-Voided Midstream Performed By: #### A DDONUAPLUS OBUDS #### [address] Specificy [place],Urine 1.021 Normal 1.001-1.030 [facility] Comment on above: Order Comment: Name Collection Type:: Clean-Voided Midstream Performed By: #### A DDONUAPLUS, OBUDS #### [place] [address] [place] Urobilinogen,Urine Normal Normal Normal [facility] Comment on above: Order Comment: Name Collection Type:: Clean-Voided Midstream Performed By: #### A DDONUAPLUS, OBUDS #### [place] [address] [place] Urine clarity by refractomet ry automatedOrdered By: NICKOLAS EWING on 10-08-2022 Clarity Refractometry automated (U) Clear Clear [facility] Urine glucose measurement by automated test strip (mass/volume)Ordered By: NICKOLAS EWING on 10-08-2022 Glucose Auto test strip (U) [Mass/Vol] Normal mg/dL Normal [facility] Urine hemoglobin detection b y automated test stripOrdered By: NICKOLAS EWING on 10-08-2022 Hemoglobin Auto test strip Ql (U) Negative Negative [facility] Urine leukocyte esterase det ection by automated test stripOrdered By: NICKOLAS EWING on 10-08-2022 Leukocyte esterase Auto test strip Ql (U) Negative Negative [facility] Urobilinogen Auto test strip (U) [Mass/Vol]Ordered By: NICKOLAS EWING on 10-08-2022 Urobilinogen (U) [Mass/Vol] Normal mg/dL Normal [facility] WBC Auto (Bld) [#/Vol]Ordere d By: NICKOLAS EWING on 10-08-2022 WBC (Bld) [#/Vol] 9.5 10*3/uL 3.8-11.6 [facility] pH Auto test strip (U)Ordere d By: NICKOLAS EWING on 10-08-2022 pH (U) 6.5 [pH] 5.0-9.0 [facility] OB ultrasound panelon 2022 IMPRESSION: 1. A single live intrauterine with estimated gestational age of 17 weeks 1 day by ultrasound. The estimated weight is 183 g. The ultrasound estimated date of delivery is 02/19/2023. 2. Subjectively normal MELODY. RADIOLOGY EXAMINATION: SECOND/THIRD TRIMESTER OBSTETRIC ULTRASOUND WITH DOPPLER 09/12/2022 2:40 pm TECHNIQUE: Transabdominal second/third trimester obstetric pelvic ultrasound was performed with color Doppler flow evaluation. COMPARISON: None. HISTORY: Assess dating FINDINGS: GENERAL OBSERVATIONS: : Single CARDIAC ACTIVITY: Yes HEART RATE: 147 beats per minute BODY & LIMB MOVEMENTS: Yes POSITION: Cephalic PLACENTA LOCATION: Anterior MELODY: Subjectively normal ANATOMY: anatomy was not assessed. ESTIMATED AGE: BY LMP: 16 weeks 5 days CURRENT US: 17 weeks 1 day ESTIMATED WEIGHT: 183 grams, 71st%tile MEASUREMENTS: BPD: 3.7 cm HEAD CIRCUMFERENCE: 13.7 cm ABD. CIRCUMFERENCE: 11.3 cm FEMUR LENGTH: 2.4 cm CERVICAL LENGTH: Not measured. RADIOLOGY Stone Gray MD - 09/12/2022 EXAMINATION: SECOND/THIRD TRIMESTER OBSTETRIC ULTRASOUND WITH DOPPLER 09/12/2022 2:40 pm TECHNIQUE: Transabdominal second/third trimester obstetric pelvic ultrasound was performed with color Doppler flow evaluation. COMPARISON: None. HISTORY: Assess dating FINDINGS: GENERAL OBSERVATIONS: : Single CARDIAC ACTIVITY: Yes HEART RATE: 147 beats per minute BODY & LIMB MOVEMENTS: Yes POSITION: Cephalic PLACENTA LOCATION: Anterior MELODY: Subjectively normal ANATOMY: anatomy was not assessed. ESTIMATED AGE: BY LMP: 16 weeks 5 days CURRENT US: 17 weeks 1 day ESTIMATED WEIGHT: 183 grams, 71st%tile MEASUREMENTS: BPD: 3.7 cm HEAD CIRCUMFERENCE: 13.7 cm ABD. CIRCUMFERENCE: 11.3 cm FEMUR LENGTH: 2.4 cm CERVICAL LENGTH: Not measured. IMPRESSION IMPRESSION: 1. A single live intrauterine with estimated gestational age of 17 weeks 1 day by ultrasound. The estimated weight is 183 g. The ultrasound estimated date of delivery is 02/19/2023. 2. Subjectively normal MELODY. [facility] Radiology Study observation (narrative) [facility] OB ultrasound panelOrdered B y: Stone Gray on 09-12-2022 [place] [employer] Work Phone: OB GROWTH/DATING > 14WEEKSon 09-12-2022 OB GROWTH/DATING > 14WEEKS EXAMINATION: SECOND/THIRD TRIMESTER OBSTETRIC ULTRASOUND WITH DOPPLER 09/12/2022 2:40 pm TECHNIQUE: Transabdominal second/third trimester obstetric pelvic ultrasound was performed with color Doppler flow evaluation. COMPARISON: None. HISTORY: Assess dating FINDINGS: GENERAL OBSERVATIONS: : Single CARDIAC ACTIVITY: Yes HEART RATE: 147 beats per minute BODY & LIMB MOVEMENTS: Yes POSITION: Cephalic PLACENTA LOCATION: Anterior MELODY: Subjectively normal ANATOMY: anatomy was not assessed. ESTIMATED AGE: BY LMP: 16 weeks 5 days CURRENT US: 17 weeks 1 day ESTIMATED WEIGHT: 183 grams, 71st%tile MEASUREMENTS: BPD: 3.7 cm HEAD CIRCUMFERENCE: 13.7 cm ABD. CIRCUMFERENCE: 11.3 cm FEMUR LENGTH: 2.4 cm CERVICAL LENGTH: Not measured. IMPRESSION: 1. A single live intrauterine with estimated gestational age of 17 weeks 1 day by ultrasound. The estimated weight is 183 g. The ultrasound estimated date of delivery is 02/19/2023. 2. Subjectively normal MELODY. Normal [facility] ([place]) C. trachomatis/N. gonorrhoea e/T. vaginalis, PCR, Urine/Vagion 08-30-2022 Chlamydia trachomatis, PCR Positive Abnormal Negative [facility] ([place]) Comment on above: Order Comment: If po sitive results do not correlate with clinical findings, repeattesting can be performed on a new freshly collected sample. Contact thelaboratory if alternative testing is required.False negative results may occur due to loss of nucleic acid frominadequate collection, transport, or storage of specimens, or due toinadequate bacterial cell lysis. If the patient has signs or symptoms ofinfection, other laboratory tests and clinical information should beused to confirm the negative result.This assay was performed on the [facility] utilizing real-time PCR.. Result Comment: Call ed chlamydia result to [facility] at ED by KG on 08/31/2022 08:41. Performed By: #### V [id number] #### [facility] [address] [place] [address] Ganga Francis MD, PhD [phone] Neisseria gonorrhoeae, PCR Negative Normal Negative [facility] ([place] Comment on above: Order Comment: If po sitive results do not correlate with clinical findings, repeattesting can be performed on a new freshly collected sample. Contact thelaboratory if alternative testing is required.False negative results may occur due to loss of nucleic acid frominadequate collection, transport, or storage of specimens, or due toinadequate bacterial cell lysis. If the patient has signs or symptoms ofinfection, other laboratory tests and clinical information should beused to confirm the negative result.This assay was performed on the [facility] utilizing real-time PCR.. Performed By: #### V ITD25 #### [facility] [address] [place] [address] Ganga Francis MD, PhD [phone] Sample Type Urine Normal [facility] ([place] Comment on above: Order Comment: If po sitive results do not correlate with clinical findings, repeattesting can be performed on a new freshly collected sample. Contact thelaboratory if alternative testing is required.False negative results may occur due to loss of nucleic acid frominadequate collection, transport, or storage of specimens, or due toinadequate bacterial cell lysis. If the patient has signs or symptoms ofinfection, other laboratory tests and clinical information should beused to confirm the negative result.This assay was performed on the [facility] utilizing real-time PCR.. Performed By: #### V [id number] #### [facility] [address] [address] Ganga Francis MD, PhD [phone] Trichomonas vaginalis, PCR Negative Normal Negative [facility] ([place] Comment on above: Order Comment: If po sitive results do not correlate with clinical findings, repeattesting can be performed on a new freshly collected sample. Contact thelaboratory if alternative testing is required.False negative results may occur due to loss of nucleic acid frominadequate collection, transport, or storage of specimens, or due toinadequate bacterial cell lysis. If the patient has signs or symptoms ofinfection, other laboratory tests and clinical information should beused to confirm the negative result.This assay was performed on the [employer] utilizing real-time PCR.. Performed By: #### V [id number] #### [facility] [address] [place] [address] Ganga Francis MD, PhD [phone] C. trachomatis/N. gonorrhoea e/T. vaginalis, PCR, Urine/Vagion 08-29-2022 Chlamydia trachomatis, PCR Positive Abnormal Negative [facility] ([place] Comment on above: Order Comment: If po sitive results do not correlate with clinical findings, repeat testing can be performed on a new freshly collected sample. Contact the laboratory if alternative testing is required. False negative results may occur due to loss of nucleic acid from inadequate collection, transport, or storage of specimens, or due to inadequate bacterial cell lysis. If the patient has signs or symptoms of infection, other laboratory tests and clinical information should be used to confirm the negative result. This assay was performed on the [facility] utilizing real-time PCR. Performed By: #### C TGCTVPCR #### [facility] [address] [place] [address] Ganga Francis MD, PhD [phone] Neisseria gonorrhoeae, PCR Negative Normal Negative [facility] ([place] Comment on above: Order Comment: If po sitive results do not correlate with clinical findings, repeat testing can be performed on a new freshly collected sample. Contact the laboratory if alternative testing is required. False negative results may occur due to loss of nucleic acid from inadequate collection, transport, or storage of specimens, or due to inadequate bacterial cell lysis. If the patient has signs or symptoms of infection, other laboratory tests and clinical information should be used to confirm the negative result. This assay was performed on the [facility] utilizing real-time PCR. Performed By: #### C TGCTVPCR #### [facility] [address] [place] [address] Ganga Francis MD, PhD [phone] Sample Type Vaginal Normal [facility] ([place] Comment on above: Order Comment: If po sitive results do not correlate with clinical findings, repeat testing can be performed on a new freshly collected sample. Contact the laboratory if alternative testing is required. False negative results may occur due to loss of nucleic acid from inadequate collection, transport, or storage of specimens, or due to inadequate bacterial cell lysis. If the patient has signs or symptoms of infection, other laboratory tests and clinical information should be used to confirm the negative result. This assay was performed on the [facility] utilizing real-time PCR. Performed By: #### C TGCTVPCR #### [facility] [address] [place] [address] Ganga Francis MD, PhD [phone] Trichomonas vaginalis, PCR Negative Normal Negative [facility] ([place] Comment on above: Order Comment: If po sitive results do not correlate with clinical findings, repeat testing can be performed on a new freshly collected sample. Contact the laboratory if alternative testing is required. False negative results may occur due to loss of nucleic acid from inadequate collection, transport, or storage of specimens, or due to inadequate bacterial cell lysis. If the patient has signs or symptoms of infection, other laboratory tests and clinical information should be used to confirm the negative result. This assay was performed on the [facility] utilizing real-time PCR. Performed By: #### C TGCTVPCR #### [facility] [address] [place], [place] [address] Ganga Francis MD, PhD [phone] CBC [facility] 08-29-2022 Basophils (Bld) [#/Vol] 0.0 10*3/uL Normal 0.0-0.1 [facility] ([place]) Comment on above: Order Comment: [place] [address] Performed By: #### V [id number] #### [facility] [address] [address] Ganga Francis MD, PhD [phone] Basophils/100 WBC (Bld) 0.3 % Normal 0.1-1.2 M [facility] ([place]) Comment on above: Order Comment: Testi ng performed at [facility], [address] [place] [address] Performed By: #### V [id number] #### [facility] [address] [place] [address] Ganga Francis MD, PhD [phone] Eosinophils (Bld) [#/Vol] 0.3 10*3/uL Normal 0.0-0.4 [facility] ([place] Comment on above: Order Comment: Testi ng performed at [facility], [address] [place], [place] [id number] Performed By: #### V ITD25 #### [facility] [address] [place] [address] aGnga Francis MD, PhD [phone] Eosinophils/100 WBC (Bld) 3.6 % Normal 0.7-5.8 [facility] ([place] Comment on above: Order Comment: Testi ng performed at [place] [id number] Performed By: #### V ITD25 #### [facility] [address] [place] [address] Ganga Francis MD, PhD [phone] Erythrocyte distribution width (RBC) [Ratio] 12.0 % Normal 11.7-14.4 [facility] ([place]) Comment on above: Order Comment: Testi ng performed at [facility], [address] [place] [address] Performed By: #### V ITD25 #### [facility] [address] [address] Ganga Francis MD, PhD [phone] Hematocrit (Bld) [Volume fraction] 35.9 % Normal 34.1-44.9 [facility] ([place] Comment on above: Order Comment: Testi ng performed at [facility], [address] [place], [place] [id number] Performed By: #### V ITD25 #### [facility] [address] [place] [address] Ganga Francis MD, PhD [phone] Hemoglobin (Bld) [Mass/Vol] 12.3 g/dL Normal 11.2-15.7 [facility] ([place] Comment on above: Order Comment: Testi ng performed at [facility], [address] [place], [place] [id number] Performed By: #### V ITD25 #### [facility] [address] [place] [address] Ganga Francis MD, PhD [phone] IG# 0.00 10^3/uL Normal 0.00-0.03 [facility] ([place] Comment on above: Order Comment: Testi ng performed at [place] [id number] Performed By: #### V ITD25 #### [facility] [address] [place] [address] Ganga Francis MD, PhD [phone] IG% 0.00 % Normal 0.00-0.43 [facility] ([place] Comment on above: Order Comment: Testi ng performed at [place] [id number] Performed By: #### V ITD25 #### [facility] [address] [place] [address] Ganga Francis MD, PhD [phone] Lymphocytes (Bld) [#/Vol] 1.5 10*3/uL Normal 1.2-3.7 [facility] ([place] Comment on above: Order Comment: Testi ng performed at [facility], [address] [place], [place] [id number] Performed By: #### V ITD25 #### [facility] [address] [address] Ganga Francis MD, PhD [phone] Lymphocytes/100 WBC (Bld) 21.1 % Normal 19.3-51.7 [facility] ([place] Comment on above: Order Comment: Testi ng performed at [facility], [address] [place] [address] Performed By: #### V ITD25 #### [facility] [address] [address] Ganga Francis MD, PhD [phone] MCH (RBC) [Entitic mass] 27.6 pg Normal 25.6-32.2 [facility] ([place] Comment on above: Order Comment: Testi ng performed at [facility], [address] [place] [address] Performed By: #### V ITD25 #### [facility] [address] [place] [address] Ganga Francis MD, PhD [phone] MCHC 34.3 % Normal 32.0-36.5 [facility] ([place] Comment on above: Order Comment: Testi ng performed at [facility], [address] [place] [address] Performed By: #### V ITD25 #### [facility] [address] [place], [place] [address] Ganga Francis MD, PhD [phone] MCV (RBC) [Entitic vol] 80.7 fL Normal 79.4-94.8 M [facility] ([place]) Comment on above: Order Comment: Testi ng performed at [address] [address] Performed By: #### V ITD25 #### [facility] [address] [place], [place] [address] Ganga Francis MD, PhD [phone] Monocytes (Bld) [#/Vol] 0.3 10*3/uL Normal 0.2-0.8 [facility] ([place] Comment on above: Order Comment: Testi ng performed at [facility], [address] [place] [address] Performed By: #### V ITD25 #### [facility] [address] [address] Gnaga Francis MD, PhD [phone] Monocytes/100 WBC (Bld) 4.6 % Low 4.7-12.5 M [facility] ([place] Comment on above: Order Comment: Testi ng performed at [facility], [address] [place] [address] Performed By: #### V ITD25 #### [facility] [address] [place] [address] Ganga Francis MD, PhD [phone] Neutrophils (Bld) [#/Vol] 4.9 10*3/uL Normal 1.6-6.1 [facility] ([place] Comment on above: Order Comment: Testi ng performed at [facility], [address] [place] [address] Performed By: #### V ITD25 #### [facility] [address] [place] [address] Ganga Francis MD, PhD [phone] Neutrophils/100 WBC (Bld) 70.4 % Normal 34.0-71.1 [facility] ([place] Comment on above: Order Comment: Testi ng performed at [facility], [address] [place] [address] Performed By: #### V ITD25 #### [facility] [address] [place] [address] Ganga Francis MD, PhD [phone] Platelet mean volume (Bld) [Entitic vol] 11.1 fL Normal 9.4-12.3 [facility] ([place] Comment on above: Order Comment: Testi ng performed at [facility], [address] [place] [address] Performed By: #### V [id number] #### [facility] [address] [address] Ganga Francis MD, PhD [phone] Platelets (Bld) [#/Vol] 199 10*3/uL Normal 182-369 [facility] ([place]) Comment on above: Order Comment: Testi ng performed at [facility], [address] [place], [place] [id number] Performed By: #### V ITD25 #### [facility] [address] [address] Ganga Francis MD, PhD [phone] RBC (Bld) [#/Vol] 4.45 10*6/uL Normal 3.93-5.22 [facility] ([place]) Comment on above: Order Comment: Testi ng performed at [facility], [address] [place], [place] [id number] Performed By: #### V ITD25 #### [facility] [address] [place] [address] Ganga Francis MD, PhD [phone] WBC (Bld) [#/Vol] 7.0 10*3/uL Normal 4.0-10.0 [facility] ([place] Comment on above: Order Comment: [place] [address] Performed By: #### V ITD25 #### [facility] [address] [place] [address] Ganga Francis MD, PhD [phone] CULTURE URINEon 08-29-2022 CULTURE URINE urine, clean-catch midstream >100,000 colonies per ml mixed normal urogenital wilda Sensitivity not indicated Normal [facility] ([place] Comment on above: Performed By: #### V [id number] #### [facility] [address] [place] [address] Ganga Francis MD, PhD [phone] Drug Screen @[facility] 08-29-19 23 Amphetamines Ql (U) Negative Normal Negative [facility] ([place]) Comment on above: Order Comment: Cutof f Values for POSITIVE'sAmphetamines >=500 ng/mL Methadone >=300 ng/mLBarbiturates >=200 ng/mL Opiates >=300 ng/mLBenzodiazepines >=200 ng/mL PCP >=25 ng/mLCocaine >=150 ng/mL THC >=50 ng/mL Performed By: #### V ITD25 #### [facility] [address] [place] [address] Ganga Francis MD, PhD [phone] Barbiturates Negative Normal Negative [facility] ([place]) Comment on above: Order Comment: Cutof f Values for POSITIVE'sAmphetamines >=500 ng/mL Methadone >=300 ng/mLBarbiturates >=200 ng/mL Opiates >=300 ng/mLBenzodiazepines >=200 ng/mL PCP >=25 ng/mLCocaine >=150 ng/mL THC >=50 ng/mL Performed By: #### V [id number] #### [facility] [address] [place] [address] Ganga Francis MD, PhD [phone] Benzodiazepines Ql (U) Negative Normal Negative [facility] ([place]) Comment on above: Order Comment: Cutof f Values for POSITIVE'sAmphetamines >=500 ng/mL Methadone >=300 ng/mLBarbiturates >=200 ng/mL Opiates >=300 ng/mLBenzodiazepines >=200 ng/mL PCP >=25 ng/mLCocaine >=150 ng/mL THC >=50 ng/mL Performed By: #### V ITD25 #### [facility] [address] [place] [address] Ganga Francis MD, PhD [phone] Cocaine Ql (U) Negative Normal Negative [facility] ([place] Comment on above: Order Comment: Cutof f Values for POSITIVE'sAmphetamines >=500 ng/mL Methadone >=300 ng/mLBarbiturates >=200 ng/mL Opiates >=300 ng/mLBenzodiazepines >=200 ng/mL PCP >=25 ng/mLCocaine >=150 ng/mL THC >=50 ng/mL Performed By: #### V [id number] #### [facility] [address] [place] [address] Ganga Francis MD, PhD [phone] Methadone Ql (U) Negative Normal Negative [facility] ([place] Comment on above: Order Comment: Cutof f Values for POSITIVE'sAmphetamines >=500 ng/mL Methadone >=300 ng/mLBarbiturates >=200 ng/mL Opiates >=300 ng/mLBenzodiazepines >=200 ng/mL PCP >=25 ng/mLCocaine >=150 ng/mL THC >=50 ng/mL Performed By: #### V [id number] #### [facility] [address] [place] [address] Ganga Francis MD, PhD [phone] Opiates Ql (U) Negative Normal Negative [facility] ([place] Comment on above: Order Comment: Cutof f Values for POSITIVE'sAmphetamines >=500 ng/mL Methadone >=300 ng/mLBarbiturates >=200 ng/mL Opiates >=300 ng/mLBenzodiazepines >=200 ng/mL PCP >=25 ng/mLCocaine >=150 ng/mL THC >=50 ng/mL Performed By: #### V ITD25 #### [facility] [address] [place] [address] Ganga Francis MD, PhD [phone] PCP Negative Normal Negative [facility] ([place] Comment on above: Order Comment: Cutof f Values for POSITIVE'sAmphetamines >=500 ng/mL Methadone >=300 ng/mLBarbiturates >=200 ng/mL Opiates >=300 ng/mLBenzodiazepines >=200 ng/mL PCP >=25 ng/mLCocaine >=150 ng/mL THC >=50 ng/mL Performed By: #### V ITD25 #### [facility] [address] [place] [address] Ganga Francis MD, PhD [phone] THC Negative Normal Negative [facility] ([place] Comment on above: Order Comment: Cutof f Values for POSITIVE'sAmphetamines >=500 ng/mL Methadone >=300 ng/mLBarbiturates >=200 ng/mL Opiates >=300 ng/mLBenzodiazepines >=200 ng/mL PCP >=25 ng/mLCocaine >=150 ng/mL THC >=50 ng/mL Performed By: #### V ITD25 #### [facility] [address] [place] [address] Ganga Francis MD, PhD [phone] Glucose + Glucola @Celinaon 08-29-2022 Glucose post Glucola 115.00 mg/dl Normal <130.00 [facility] ([place]) Comment on above: Order Comment: GLU+ 02: Minutes post dose: 60GLU+ 01: Grams glucola given: 50Testing performed at [address] [address] Result Comment: A gl ucose threshold of >130 mg/dL identifies 90% of women with gestational diabetes, compared to 80% identified using a threshold of >140 mg/dL. Performed By: #### V ITD25 #### [facility] [address] [place] [address] Ganga Francis MD, PhD [phone] HCG Quantitativeon 3 HCG Quantitative 48166 mIU/mL High <5 [facility] ([place]) Comment on above: Result Comment: Acco rding to the literature, hCG results greater than or equal to 25 mIU/mL are considered positive. gestational age ranges 1-10 weeks: 45-256,740 mIU/mL 11-15 weeks: 11,556-265,380 mIU/mL 16-22 weeks: 7,481-111,954 mIU/mL 23-40 weeks: 1,531-101,566 mIU/mL This test has not been validated for monitoring as a tumor marker. Performed By: #### V ITD25 #### [facility] [address] [place] [address] Ganga Francis MD, PhD [phone] HIV Ag/Abon 08-29-2022 HIV Ag/Ab Negative Normal Negative [facility] ([place]) Comment on above: Order Comment: Swetha amanda verbally consents to HIV test and declines anonymoustesting:->Yes Result Comment: HIV- 1 antigen and HIV-1/HIV-2 antibodies were not detected. There is no laboratory evidence of HIV infection. This test is not intended for screening or for use with cord blood specimens or specimens from individuals less than 2 years of age. Performed By: #### V ITD25 #### [facility] [address] [place] [address] Ganga Francis MD, PhD [phone] Hepatitis B Surface Antigeno n 08-29-2022 Hepatitis B Surface Ag Negative Normal Negative [facility] ([place]) Comment on above: Performed By: #### H RAMAKRISHNA ESPARZA #### [facility] [address] [place] [address] Ganga Francis MD, PhD [phone] RPR (Syphilis)on 08-29-2022 Reagin Ab RPR Ql (S) Non-Reactive Normal Nonreactive M [facility] ([place]) Comment on above: Performed By: #### R MI #### [facility] [address] [place] [address] Ganga Francis MD, PhD [phone] Rubella Abon 08-29-2022 Rubella Ab Negative Abnormal Positive [facility] ([place]) Comment on above: Result Comment: Jessy patino is presumed to be not immune to infection with Rubella. Performed By: #### H RAMAKRISHNA ESPARZA #### [facility] [address] [place] [address] Ganga Francis MD, PhD [phone] TSH w/FT4 Reflexon 3 TSH Qn 1.34 m[IU]/L Normal 0.47-4.68 [facility]) Comment on above: Performed By: #### T SHRFT4 #### [facility] [address] [place] [address] Ganga Francis MD, PhD [phone] Type AND Rhon 08-29-2022 Type AND Rh Positive Normal [facility] ([place] Comment on above: Performed By: #### A BS, TYPE #### [facility] [address] [place], [place] [address] Ganga Francis MD, PhD [phone] #### CUAWMICCII #### [facility] [address] [place] [address] Ganga Francis MD, PhD [phone] Urinalysis Total with Reflex Culture [facility] 08-29-2022 Bacteria 2+ Abnormal None [facility] ([place]) Comment on above: Order Comment: Testi ng performed at [facility], [address] [place] [address] Performed By: #### A BS, TYPE #### [facility] [address] [place] [address] Ganga Francis MD, PhD [phone] #### CUAWMICCII #### [facility] [address] [place] [address] aGnga Francis MD, PhD [phone] Bilirubin Ql (U) Negative Normal Negative [facility] ([place] Comment on above: Order Comment: Testi ng performed at [facility], [address] [place] [address] Performed By: #### A BS, TYPE #### [facility] [address] [place] [address] Ganga Francis MD, PhD [phone] #### CUAWMICCII #### [facility] [address] [place] [address] Ganga Francis MD, PhD [phone] Clarity (U) Clear Normal Clear [facility] ([place] Comment on above: Order Comment: Testi ng performed at [facility], [address] [place] [address] Performed By: #### A BS, TYPE #### [facility] [address] [place], [place] [address] Ganga Francis MD, PhD [phone] #### STEPHANIEMICCII #### [facility] [address] [place] [address] Ganga Francis MD, PhD [phone] Color (U) Yellow Normal Yellow [facility] ([place]) Comment on above: Order Comment: Testi ng performed at [facility], [address] [place] [address] Performed By: #### A [facility], TYPE #### [facility] [address] [place], [place] [address] Ganga Francis MD, PhD [phone] #### STEPHANIEMICCII #### [facility] [address] [place] [address] Ganga Francis MD, PhD [phone] Epithelial cells LM Ql (Urine sed) 0-5 Normal 0-5 [facility] ([place] Comment on above: Order Comment: Testi ng performed at [facility], [address] [place] [address] Performed By: #### A [facility], TYPE #### [facility] [address] [place] [address] Ganga Francis MD, PhD [phone] #### STEPHANIEMICCII #### [facility] [address] [place] [address] Ganga Francis MD, PhD [phone] Glucose Ql (U) Negative Normal Negative [facility] ([place] Comment on above: Order Comment: Testi ng performed at [facility], [address] [place] [address] Performed By: #### A [facility], TYPE #### [facility] [address] [place] [address] Ganga Francis MD, PhD [phone] #### SHREYASAWMICCII #### [facility] [address] [place] [address] Ganga Francis MD, PhD [phone] Hemoglobin Ql (U) Negative Normal Negative [facility] ([place] Comment on above: Order Comment: Testi ng performed at [facility], [address] [place] [address] Performed By: #### A BS, TYPERH #### [facility] [address] [place], [place] [address] Ganga Francis MD, PhD [phone] #### CUAWMICCII #### [facility] [address] [place] [address] Ganga Francis MD, PhD [phone] Ketone 2+ Abnormal Negative [facility] ([place] Comment on above: Order Comment: Testi ng performed at [facility], [address] [place] [address] Performed By: #### A BS, TYPE #### [facility] [address] [place] [address] Ganga Francis MD, PhD [phone] #### CUAWMICCII #### [facility] [address] [place] [address] Ganga Francis MD, PhD [phone] Leukocyte esterase Test strip Ql (U) Negative Normal Negative [facility] ([place] Comment on above: Order Comment: Testi ng performed at [facility], [address] [place] [address] Performed By: #### A BS, TYPE #### [facility] [address] [place] [address] Ganga Francis MD, PhD [phone] #### CUAWMICCII #### [facility] [address] [place] [address] Ganga Francis MD, PhD [phone] Nitrite Ql (U) Negative Normal Negative [facility] ([place] Comment on above: Order Comment: Testi ng performed at [facility], [address] [place] [address] Performed By: #### A BS, TYPE #### [facility] [address] [place], [place] [address] Ganga Francis MD, PhD [phone] #### CUAWMICCII #### [facility] [address] [place] [address] Ganga Francis MD, PhD [phone] pH, UA 5.5 Abnormal 6.0-7.5 [facility] ([place] Comment on above: Order Comment: Testi ng performed at [facility], [address] [place] [address] Performed By: #### A BS, TYPE #### [facility] [address] [place], [place] [address] Ganga Francis MD, PhD [phone] #### CUAWMICCII #### [facility] [address] [place] [address] Ganga Francis MD, PhD [phone] Protein Ql (U) Negative Normal Negative [facility] ([place] Comment on above: Order Comment: Testi ng performed at [facility], [address] [place] [address] Performed By: #### A BS, TYPE #### [facility] [address] [place] [address] Ganga Francis MD, PhD [phone] #### CUAWMICCII #### [facility] [address] [place] [address] Ganga Francis MD, PhD [phone] RBC/hpf 0-2 Normal 0-2 [facility] ([place] Comment on above: Order Comment: Testi ng performed at [facility], [address] [place] [address] Performed By: #### A BS, TYPE #### [facility] [address] [place] [address] Ganga Francis MD, PhD [phone] #### CUAWMICCII #### [facility] [address] [place] [address] Ganga Francis MD, PhD [phone] Specific gravity (U) [Rel density] >=1.030 Abnormal 1.005-1.02 [facility] ([place]) Comment on above: Order Comment: Testi ng performed at [facility], [address] [place], [place] [id number] Performed By: #### A [facility], TYPE #### [facility] [address] [place] [address] Ganga Francis MD, PhD [phone] #### CUAWMICCII #### [facility] [address] [place] [address] Ganga Francis MD, PhD [phone] Urobilinogen 0.2 E.U./dL Normal 0.2-1.0 [facility] ([place]) Comment on above: Order Comment: Testi ng performed at [facility], [address] [place] [address] Performed By: #### A [facility], TYPE #### [facility] [address] [place] [address] Ganga Francis MD, PhD [phone] #### CUAWMICCII #### [facility] [address] [place], [place] [address] Ganga Francis MD, PhD [phone] WBC/hpf 0-5 Normal 0-5 [facility] ([place] Comment on above: Order Comment: Testi ng performed at [facility], [address] [place], [place] [id number] Performed By: #### A [facility], TYPE #### [facility] [address] [place] [address] Ganga Francis MD, PhD [phone] #### CUAWMICCII #### [facility] [address] [place], [place] [address] Ganga Francis MD, PhD [phone] VARICELLA-ZOSTER VIRUS ANTIB PIERO (IgG)on 08-29-2022 VZV Antibody (IgG) <135.00 Low >=165.00 [facility] ([place]) Comment on above: Order Comment: [facility] Testing performed at: [facility], [address] [place] [address], , Chain Dyer: Luis Sanchez MD PhD [facility] Collection Date/Time: [facility] Results Received Date/Time: [facility] Reported Date/Time: [id number] Result Comment: Index Interpretation ===== < 135.00 Negative - Antibody not detected 135.00 - 164.99 Equivocal > or = 165.00 Positive - Antibody detected Performed By: #### V ZIGG #### [facility] (DEFAULT) [address] [place], [place] [address] Vitamin D 25-OH Totalon 08-20 Vitamin D, 25-OH Total 46.00 ng/mL Normal 30.00-100.00 [facility] ([place]) Comment on above: Result Comment: <20 ng/mL Deficient 20-<30 ng/mL Insufficient 30-100 ng/mL Sufficient >100 ng/mL Potential Toxicity Performed By: #### V ITD25 #### [facility] [address] [place], [place] [address] Ganga Francis MD, PhD [phone] Vital Signs Date Time Vital Sign Value Performing Clinician Facility 04-04-2023 12:18-0400 Blood Pressure Location Chepe Contreras [facility] 04-04-2023 12:18-0400 Body temperature 97.16 [degF] Chepe Contreras [facility] 04-04-2023 12:18-0400 Diastolic blood pressure 80 mm[Hg] Chepe Contreras [facility] 04-04-2023 12:18-0400 Heart rate 94 /min Chepe Contreras [facility] 04-04-2023 12:18-0400 SaO2% (BldA) [Mass fraction] 99 % Chepe Contreras [facility] 04-04-2023 12:18-0400 Systolic blood pressure 120 mm[Hg] Chepe Contreras [facility] 02-19-2023 08:50-0400 Body temperature 98 [degF] PHYSICIAN NO [facility] 02-19-2023 08:50-0400 Diastolic blood pressure 77 mm[Hg] PHYSICIAN NO [facility] 02-19-2023 08:50-0400 Heart rate 78 /min PHYSICIAN NO [facility] 02-19-2023 08:50-0400 Respiratory rate 18 /min PHYSICIAN NO [facility] 02-19-2023 08:50-0400 SaO2% (BldA) [Mass fraction] 98 % PHYSICIAN NO [facility] 02-19-2023 08:50-0400 Systolic blood pressure 115 mm[Hg] PHYSICIAN NO [facility] 02-17-2023 16:45-0400 Inhaled oxygen flow rate 10 L/min PHYSICIAN NO [facility] 02-16-2023 21:24-0400 Body height 172.72 cm PHYSICIAN NO [facility] 02-16-2023 21:24-0400 Body weight 119.29 kg PHYSICIAN NO [facility] 02-16-2023 06:15-0400 Body temperature 97.3 [degF] PHYSICIAN NO [facility] 02-16-2023 06:15-0400 Diastolic blood pressure 84 mm[Hg] PHYSICIAN NO [facility] 02-16-2023 06:15-0400 Heart rate 110 /min PHYSICIAN NO [facility] 02-16-2023 06:15-0400 Respiratory rate 16 /min PHYSICIAN NO [facility] 02-16-2023 06:15-0400 SaO2% (BldA) [Mass fraction] 98 % PHYSICIAN NO [facility] 02-16-2023 06:15-0400 Systolic blood pressure 134 mm[Hg] PHYSICIAN NO [facility] 02-16-2023 04:46-0400 Body height 172.72 cm PHYSICIAN NO [facility] 02-16-2023 04:46-0400 Body weight 119.29 kg PHYSICIAN NO [facility] 02-10-2023 14:07-0400 Body height 172.72 cm PHYSICIAN NO [facility] 02-10-2023 14:07-0400 Body temperature 97.7 [degF] PHYSICIAN NO [facility] 02-10-2023 14:07-0400 Body weight 120.45 kg PHYSICIAN NO [facility] 02-10-2023 14:07-0400 Diastolic blood pressure 82 mm[Hg] PHYSICIAN NO [facility] 02-10-2023 14:07-0400 Heart rate 112 /min PHYSICIAN NO [facility] 02-10-2023 14:07-0400 Respiratory rate 18 /min PHYSICIAN NO [facility] 02-10-2023 14:07-0400 SaO2% (BldA) [Mass fraction] 98 % PHYSICIAN NO [facility] 02-10-2023 14:07-0400 Systolic blood pressure 122 mm[Hg] PHYSICIAN NO [facility] 01-14-2023 21:27-0400 Respiratory rate 18 /min PHYSICIAN NO [facility] 01-14-2023 21:23-0400 SaO2% (BldA) [Mass fraction] 97 % PHYSICIAN NO [facility] 01-14-2023 21:01-0400 Body height 172.72 cm PHYSICIAN NO [facility] 01-14-2023 21:01-0400 Body weight 112.94 kg PHYSICIAN NO [facility] 01-14-2023 20:34-0400 Body temperature 98.3 [degF] PHYSICIAN NO [facility] 01-14-2023 20:34-0400 Diastolic blood pressure 66 mm[Hg] PHYSICIAN NO [facility] 01-14-2023 20:34-0400 Heart rate 99 /min PHYSICIAN NO [facility] 01-14-2023 20:34-0400 Systolic blood pressure 125 mm[Hg] PHYSICIAN NO [facility] 10-08-2022 13:24-0400 Respiratory rate 16 /min PHYSICIAN NO [facility] 10-08-2022 13:06-0400 Body temperature 96.8 [degF] PHYSICIAN NO [facility] 10-08-2022 13:05-0400 Diastolic blood pressure 58 mm[Hg] PHYSICIAN NO [facility] 10-08-2022 13:05-0400 Heart rate 85 /min PHYSICIAN NO [facility] 10-08-2022 13:05-0400 SaO2% (BldA) [Mass fraction] 94 % PHYSICIAN NO [facility] 10-08-2022 13:05-0400 Systolic blood pressure 119 mm[Hg] PHYSICIAN NO [facility] 10-08-2022 12:31-0400 Body height 172.72 cm PHYSICIAN NO [facility] 10-08-2022 12:31-0400 Body weight 102.96 kg PHYSICIAN NO [facility] 08-30-2022 16:10-0500 Body height 172.7 cm Nicole Dues DO Work Phone: [facility] 08-30-2022 16:10-0500 Body mass index (BMI) [Ratio] 34.82 kg/m2 Nicole Dues DO Work Phone: [facility] 08-30-2022 16:10-0500 Body temperature 98.1 [degF] Nicole Dues DO Work Phone: [facility] 08-30-2022 16:10-0500 Body weight 103.87 kg Nicole Dues DO Work Phone: [facility] 08-30-2022 16:10-0500 Diastolic blood pressure 90 mm[Hg] Nicole Dues DO Work Phone: [facility] 08-30-2022 16:10-0500 Heart rate 74 /min Nicole Dues DO Work Phone: [facility] 08-30-2022 16:10-0500 Respiratory rate 16 /min Nicole Dues DO Work Phone: [facility] 08-30-2022 16:10-0500 SaO2% (BldA) [Mass fraction] 98 % Nicole Dues DO Work Phone: [facility] 08-30-2022 16:10-0500 Systolic blood pressure 141 mm[Hg] Nicole Dues DO Work Phone: [facility] Encounters Encounter Date Encounter Type Care Provider Facility Start: 01-28-2024 End: 01-28-2024 ambulatory DANI A VISCI Not Available Start: 01-22-2024 End: 01-22-2024 ambulatory SAGAR KINGSTON Not Available Start: 04-04-2023 End: 04-05-2023 ambulatory Chepe Contreras Facility:[facility] Start: 04-04-2023 End: 04-04-2023 Patient encounter procedure Chepe Contreras [facility] Start: 02-21-2023 End: 02-21-2023 ambulatory Jackie Gates Facility:[facility] Start: 02-21-2023 End: 02-21-2023 ambulatory PHYSICIAN NO [facility] Work Phone: Start: 02-21-2023 End: 02-21-2023 Patient encounter procedure PHYSICIAN NO [facility]- Visit Work Phone: Start: 02-16-2023 End: 02-19-2023 Evaluation and management of inpatient Dani Visci Facility:[facility] Start: 02-16-2023 End: 02-19-2023 Evaluation and management of inpatient PHYSICIAN NO [facility] [place] Work Phone: Start: 02-16-2023 End: 02-16-2023 Emergency department patient visit Stone Victoria Facility:[facility] Start: 02-16-2023 End: 02-16-2023 Emergency department patient visit PHYSICIAN NO [facility]-Emergency Room Work Phone: Start: 02-10-2023 End: 02-10-2023 Emergency department patient visit PHYSICIAN NO FAMILY Facility:[facility] Start: 02-10-2023 End: 02-10-2023 Emergency department patient visit PHYSICIAN NO [facility]-Emergency Room Work Phone: Start: 01-23-2023 End: 01-23-2023 ambulatory PHYSICIAN NO [facility] Work Phone: Start: 01-23-2023 End: 01-23-2023 Departed Referred PHYSICIAN NO [facility] [place] Work Phone: Start: 01-14-2023 End: 01-14-2023 ambulatory Esperanzadorinda Callawaykes Facility:[facility] Start: 01-14-2023 End: 01-14-2023 ambulatory PHYSICIAN NO [facility] Work Phone: Start: 01-14-2023 End: 01-14-2023 Patient encounter procedure PHYSICIAN NO [facility] [place] Labor - O/P Start: 10-08-2022 End: 10-08-2022 ambulatory PHYSICIAN NO [facility] Facility:[facility] Start: 10-08-2022 End: 10-08-2022 ambulatory PHYSICIAN NO [facility] Work Phone: Start: 10-08-2022 End: 10-08-2022 Patient encounter procedure PHYSICIAN NO [facility] Labor - O/P Start: 09-12-2022 ambulatory SELF SELF [facility] ([place]) Start: 09-12-2022 End: 09-12-2022 Subsequent hospital visit by physician Dany PATTON Work Phone: [facility] Comment on above: Arrived Start: 08-30-2022 End: 08-30-2022 Emergency department patient visit [address] [facility] [place] Start: 08-30-2022 End: 08-30-2022 Emergency department patient visit Nicole Guerrero DO Work Phone: [facility] Emergency Department Start: 08-29-2022 ambulatory SELF SELF [facility] [place]) Start: 08-29-2022 ambulatory [phone] KACI SINGHA DOUG [facility] ([place]) Start: 12-05-2021 ambulatory BIN Dowling MELVI [facility] ([place]) Procedures Date Procedure Procedure Detail Performing Clinician Start: 01-23-2023 Group B Streptococcu s Culture PHYSICIAN NO FAMILY Start: 09-12-2022 Us preg uterus real time f/u trnsabdl per fetus Dany Camacho APRN-CNQueta Work Phone: Start: 08-29-2022 Antibody screen [id number] [phone] DANY CAMACHO Comment on above: Performed By: #### A BSC, TYPERH #### [facility] Laboratory [address] [place], [place] [address] Ganga Francis MD, PhD [phone] #### CUAWMICCII #### [facility] [address] [place] [address] Ganga Francis MD, PhD [phone] Plan of Treatment Date Care Activity Detail Author Start: 02-19-2023 [facility] Start: 02-17-2023 Hospital admission [facility] Start: 02-16-2023 Hospital admission [facility] Start: 01-23-2023 Group B Streptococcus Culture Group B Streptococcus Culture [facility] Start: 01-23-2023 Following clinical pathway protocol [facility] Start: 01-14-2023 [facility] Start: 01-14-2023 Hospital admission [facility] Start: 10-08-2022 [facility] Start: 10-08-2022 Hospital admission [facility] Start: 10-08-2022 End: 10-08-2022 [facility] Start: 09-26-2022 End: 09-26-2022 Follow-up encounter 09/26/2022 Follow Up Visit SOFTWARE TEAM LEADER Dany Camacho APRN-CNM [address] [id number] [facility] SOFTWARE TEAM LEADER at [facility] Start: 09-12-2022 End: 09-12-2022 Patient encounter procedure 09/12/2022 Appointment Ultrasound DougDany, HOMERO-CNM [address] [phone] [facility]ound Start: 03-20-2022 Influenza vaccination INFLUENZA VACCINE (#1) [facility] Start: 2021 Screening for malignant neoplasm of cervix CERVICAL CANCER SCREENING DISCUSSION [facility] Start: 2019 Third diphtheria, tetanus and acellular pertussis (DTaP) vaccination TDAP (ADULT) [facility] Start: 2016 Screening for Chlamydia trachomatis CHLAMYDIA SCREEN [facility] Start: 2011 Vaccination for human papillomavirus HPV VACCINE ADOL (1 - 2-dose series) [facility] Start: 02-15-2001 COVID-19 VACCINE (#1) COVID-19 VACCINE (#1) [facility] Start: 2000 Hepatitis C screening HEPATITIS C VIRUS SCREENING [facility] Start: 2000 Screening for Chlamydia trachomatis GONORRHEA SCREEN [facility] Start: 2000 Tetanus vaccination TETANUS [facility] Neisseria gonorrhoea e Ag [Presence] in Unspecified specimen CHLAM TRACHOMATIS/NEISSERIA GONORRHOEAE/TRICHOMONAS VAGINALIS PCR Microbiology STAT 08/30/2022 4:25 PM EST [facility] Patient Education [facility] Work Phone: Patient referral [facility] Work Phone: Immunizations Immunization Date Immunization Notes Care Provider Fa veronicaty 02-18-2023 measles, mumps and rubella virus vaccine PHYSICIAN NO [facility] 02-18-2023 tetanus toxoid, redu tamika diphtheria toxoid, and acellular pertussis vaccine, adsorbed PHYSICIAN NO [facility] Payers Date Payer Category Payer Self-pay 2022 Unknown [facility] [id number] 2022-Present [id number] 2022 Unknown [id number] 2000 Unknown [id number] 2000 Unknown [id number] [id number] 2000 Unknown [id number] [id number] 2000 Unknown [id number] [id number] 2000 Unknown [id number] [id number] 2000 Unknown [id number] [id number] 2000 Unknown [id number] [id number] Medicaid [employer] [facility] [place] [id number] Unknown [id number] [id number] Unknown [id number] [id number] Unknown [id number] [id number] Unknown [id number] [id number] Unknown [id number] Unknown [id number] [id number] Unknown [id number] Social History Date Type Detail Facility Start: 12-05-2021 End: 04-04-2023 Tobacco smoking status [facility] Never smoked tobacco [facility] Start: 12-05-2021 Tobacco use and exposure Smokeless tobacco non-user [facility] Start: 08-30-2022 Alcohol intake Ex-drinker (finding) [facility] Start: 06-01-2022 [facility] Start: 2000 Sex Assigned At Not on file [facility] Start: 08-20-2022 End: 08-30-2022 Exposure to SARS-CoV-2 (event) Not sure [facility] Start: 2000 Sex Assigned At Female F [facility] Start: 02-16-2023 Tobacco smoking stat [facility] Ex-smoker (finding) [facility] Tobacco smoking status Never [facility] Sex Assigned At Female [facility] Goals Date Patient Goal Desired Activity /State Functional Status Date Assessment Result Facility 04-04-2023 Functional Status N/A [facility] 02-19-2023 Functional status Patient at Baseline [facility] Work Phone: Mental Status Date Assessment Result Facility 02-19-2023 Cognitive function Cognitive Sta tus Patient at Baseline [facility] Work Phone: Clinical Notes 08-30-2022 to 02-19-2023 Note Date & Type Note Facility 02-19-2023 Progress note Note Date/Time February 19, 2023 9:30am [facility] [address] [place] [address] SOFTWARE TEAM LEADER Progress Note Signed Patient: Dustin Muir MR#: [id number] : 2000 Acct:[id number] Age/Sex: 22 / F Adm Date: 3 Loc: 3S Room: [address] [place] [address] Type: ADM IN Attending Dr: Dani Henderson DO Copies to: ~ Date of Service: 02/19/2023 OB - PN: Subj Subjective Post Delivery Day #: Day 2 Interval history: Patient is status post normal vaginal delivery, PPD#2, denies any complaints. Tolerating regular diet and voiding spontaneously without difficulty. Denies any chest pain, shortness of breath, nausea, vomiting, fevers/chills. Reports pain is minimal and controlled with pain medication. Reports lochia is decreasing Patient comments: no complaints, pain well controlled (pain rated a 5/10), tolerating diet, flatus present (also passed bowel movement) and other (She reports minimal bleeding while ) [place] baby status: doing well [place] feeding status: breast and bottle feeding (patient reports her milk production is slow) OB - PN: Obj Exam Constitutional Constitutional: no acute distress and cooperative Respiratory Exam Respiratory: Present CTA bilaterally; Absent accessory muscle use, rhonchi, stridor or wheezes Cardiovascular Exam Cardiovascular: Present RRR; Absent murmur, gallop or rubs Abdominal Exam Abdominal: Present soft; Absent normoactive bowel sounds (hypoactive bowel sounds) or tenderness Fundus: Present firm Comments: U=-1 Extremities Exam Extremities: Present edema (minimal leg swelling); Absent cyanosis, clubbing or calf tenderness Urinary Catheter Management Straight: Cath placed during this visit: no OB - PN: Obj Data Labs 02/18/23 06:39 Labs: 02/18/23 06:39: Uncorrected WBC Count 11.7 H, MCV 79.9 L, MCH 26.9, MCHC 33.7, RDW 14.2, Plt Count 173, MPV 9.8, Neut % (Auto) 74.5, Lymph % (Auto) 17.9, [place] % (Auto) 6.7, Eos % (Auto) 0.6, Baso % (Auto) 0.3, Nucleat RBC Rel Count 0.0, Neut # (Auto) 8.7 H, Lymph # (Auto) 2.1, [place] # (Auto) 0.8, Eos # (Auto) 0.1, Baso # (Auto) 0.0 Assessment/Plan Assessment (1) Status post normal vaginal delivery: Status: Acute Plan day: 2 Vaginal delivery plan (if applicable): routine care, discharge home and follow up 6 weeks Documented By: ROLANDO MCKEON DO 02/19/23 0639 Signed By: <Electronically signed by ROLANDO MCKEON DO> 02/19/23 9630 [facility] Work Phone: 1(793) 812-382208-02-2023 Progress note Author Nickolas Ewing [facility] February 18, 2023 8:28am Note Date/Time February 18, 2023 8:2 5am [facility] [address] [place] [address] SOFTWARE TEAM LEADER Progress Note Signed Patient: Dustin Muir MR#: [id number] : 2000 Acct:[id number] Age/Sex: 22 / F Adm Date: 3 Loc: Room: [address] [place] [address] Type: ADM IN Attending Dr: Dani Henderson DO Copies to: ~ Date of Service: 02/18/2023 OB - PN: Subj Subjective Post Delivery Day #: Day 1 Patient comments: no complaints, pain well controlled, tolerating diet, flatus present and other (patient is experiencing some cramping while . minimal bleeding with no clots) [place] baby status: doing well feeding status: exclusively breast feeding OB - PN: Obj Exam Physical Exam Vital signs: Vital Signs - 8 hr 02/17/23 23:21 02/17/23 23:10 02/18/23 00:10 Temperature 98.0 F Pulse Rate 100 H 86 Respiratory Rate 18 20 Blood Pressure 123/65 130/78 02 Sat by Pulse Oximetry 97 Oxygen Delivery Method 02/18/23 00:10 02/18/23 01:10 02/18/23 02:10 Temperature 98.1 F 98.0 F Pulse Rate 104 H 107 H Respiratory Rate 18 18 Blood Pressure 120/76 129/78 02 Sat by Pulse Oximetry 97 96 Oxygen Delivery Method Room Air 02/18/23 03:10 Temperature 97.9 F Pulse Rate 87 Respiratory Rate 18 Blood Pressure 123/81 02 Sat by Pulse Oximetry 97 Oxygen Delivery Method Constitutional Constitutional: no acute distress and cooperative Respiratory Exam Respiratory: Present CTA bilaterally; Absent accessory muscle use, rhonchi, stridor, wheezes or crackles Cardiovascular Exam Cardiovascular: Present RRR; Absent murmur, gallop or rubs Abdominal Exam Abdominal: Present soft; Absent normoactive bowel sounds (hypoactive bowel sounds), tenderness, rebound or guarding Fundus: Present firm Extremities Exam Extremities: Present edema (mild ankle edema); Absent cyanosis, clubbing, Kyle's sign or joint swelling Skin Exam Skin: Present intact; Absent cyanosis Urinary Catheter Management Straight: Cath placed during this visit: no OB - PN: Obj Data Labs 02/16/23 21:45 Labs: 02/18/23 06:39: Uncorrected WBC Count Pending, MCV Pending, MCH Pending, MCHC Pending, RDW Pending, Plt Count Pending, MPV Pending, Neut % (Auto) Pending, Lymph % (Auto) Pending, [place] % (Auto) Pending, Eos % (Auto) Pending, Baso % (Auto) Pending, Nucleat RBC Rel Count Pending, Neut # (Auto) Pending, Lymph # (Auto) Pending, [place] # (Auto) Pending, Eos # (Auto) Pending, Baso # (Auto) Pending 02/16/23 21:45: RPR w/Rflx to Titer Non reactive Assessment/Plan Plan Vaginal delivery plan (if applicable): routine care Documented By: NICKOLAS EWING MD 02/18/23 0658 Signed By: <Electronically signed by MD NICKOLAS EWING> 02/18/2328 [facility] Work Phone: 1(380) 369-899308-01-2023 [facility] Emergency department Note* Nicole Guerrero, - 08/30/2022 4:31 PM EST [facility] Emergency Department [address] [place] [address] Chief Complaint Chief Complaint Patient presents with Sexually Transmitted Disease HPI Dustin Wang is a 22 y.o. female with a chief complaint of possible chlamydia infection. The patient is G5, P0 with an estimated date of delivery of February 22, 2023. She had her first obstetrics appointment yesterday with Dany Camacho. She had STI testing done in which the chlamydia PCR is positive. She saw the positive result on her MyChart this morning. She feels as though it is a false positive. She denies symptoms of pelvic pain, mucopurulent discharge, fever, dysuria or frequency with urination. Denies prior history of sexually transmitted infection. She denies vaginal bleeding. She presents to the emergency department requesting repeat testing. Review of Systems Review of systems has been obtained and pertinent positives are noted above. See HPI for further details. Review of systems otherwise negative. Past Medical History Past Medical History: Diagnosis Date Asthma Sleep apnea Family History Family History Problem Relation Age of Onset Heart Disease - Other Mother SLE Mother Drug Abuse Mother meth Colorectal Cancer Maternal Grandmother Diabetes Maternal Uncle Social History Social History Socioeconomic History Marital status: Single Tobacco Use Smoking status: Never Smokeless tobacco: Never Vaping Use Vaping Use: Former Substance and Sexual Activity Alcohol use: Not Currently Drug use: Never Sexual activity: Yes Partners: Male Surgical History Past Surgical History: Procedure Laterality Date WISDOM TEETH EXTRACTION Current Medications Current Outpatient Medications Medication Sig azithromycin 500 MG tablet Take 2 tablets by mouth once for 1 dose. oyster shell calcium 1250 (500 Ca) MG tablet Take 1 tablet by mouth daily. MV-Min-Fe Fum-FA-DHA ( 1 PO) Take by mouth daily. Allergies Allergies Allergen Reactions Mushroom Extract Complex Hives Penicillins Hives Physical Exam VITAL SIGNS: BP 141/90 Pulse 74 Temp 98.1 F (36.7 C) (Oral) Resp 16 Ht 1.727 m (5' 8 ) Wt103.9 kg (229 lb) SpO2 98% BMI 34.82 kg/m Smoking Status Never Constitutional: Well developed, No acute distress, Non-toxic appearance. HENT: Normocephalic, Atraumatic, Bilateral external ears normal, No oral exudates. Eyes: PERRLA, Conjunctiva normal, No discharge. Neck: Normal range of motion, No tenderness, Supple, No nuchal rigidity. Lymphatic: No lymphadenopathy noted. Cardiovascular: Regular, normal heart rate, Normal rhythm, No murmur. Thorax & Lungs: Equal breath sounds bilateral, No respiratory distress, No rhonchi, rales or wheezing, Abdomen: Bowel sounds normal, Soft, nondistended. No tenderness, No masses, No guarding. Skin: Warm, Dry, No erythema, No rash. Back: No CVA tenderness. Extremities: No tenderness, No cyanosis No edema. Musculoskeletal: No tenderness to palpation or major deformities noted. Neurologic: Alert & oriented x 4, No focal deficits noted. Labs/Radiology/Procedures Medications - No data to display No results found for this visit on 08/30/22. No orders to display Course & Medical Decision Making Pertinent Labs & Imaging studies reviewed and interpreted by myself. (See chart for details) I have reviewed the nursing triage summary. This a 22-year-old female who presented to the emergency department requesting STI testing. The patient tested positive for chlamydia via PCR yesterday. I had a long discussion with the patient aboutthe specificity of the PCR testing. She repeatedly requests repeat testing. Therefore, urine was obtained for a repeat PCR test. She declined treatment for chlamydia while in the ED. I stressed the importance of treatment knowing she is . I have sent a prescription to the pharmacy and encouraged her to fill the prescription and take accordingly. She states her significant other has also signed into the emergency department and will be tested for STI. I encouraged follow-up with her freight manager. I have discussed the potential need for return to the emergency department for reevaluation if symptoms change. Final Impression 1. Chlamydia vaginitis/cervicitis Electronically Signed By: Nicole Guerrero DO 08/30/2022 Nicole Guerrero DO 08/30/22 1633 * Samantha Mondragon RN - 08/30/2022 4:11 PM EST Patient ambulated to the ED for a complaint of testing positive for chlamydia. Patient states that she was seen on her OBGYN on 08/28/2021 for a appointment and she was swabbed for STD's at that time. Patient states that she has been swabbed for STD's very time that she has a new sexual partner and she has never been positive for any STD's/STI's in the past. Patient states that her husbandhas also been tested and negative as well. Patient read online that if she has bacterial vaginosis that she could test false positive for chlamydia. Patient states that she has had a lot of vaginal discharge. documented in this [facility]02-11-2023 Physician Emergency department Note* Nicole Guerrero DO - 08/30/2022 4:31 PM EST [facility] Emergency Department [address] [place] [address] Chief Complaint Chief Complaint Patient presents with Sexually Transmitted Disease HPI Dustin Wang is a 22 y.o. female with a chief complaint of possible chlamydia infection. The patient is G5, P0 with an estimated date of delivery of February 22, 2023. She had her first obstetrics appointment yesterday with Dany Camacho. She had STI testing done in which the chlamydia PCR is positive. She saw the positive result on her MyChart this morning. She feels as though it is a false positive. She denies symptoms of pelvic pain, mucopurulent discharge, fever, dysuria or frequency with urination. Denies prior history of sexually transmitted infection. She denies vaginal bleeding. She presents to the emergency department requesting repeat testing. Review of Systems Review of systems has been obtained and pertinent positives are noted above. See HPI for further details. Review of systems otherwise negative. Past Medical History Past Medical History: Diagnosis Date Asthma Sleep apnea Family History Family History Problem Relation Age of Onset Heart Disease - Other Mother SLE Mother Drug Abuse Mother meth Colorectal Cancer Maternal Grandmother Diabetes Maternal Uncle Social History Social History Socioeconomic History Marital status: Single Tobacco Use Smoking status: Never Smokeless tobacco: Never Vaping Use Vaping Use: Former Substance and Sexual Activity Alcohol use: Not Currently Drug use: Never Sexual activity: Yes Partners: Male Surgical History Past Surgical History: Procedure Laterality Date WISDOM TEETH EXTRACTION Current Medications Current Outpatient Medications Medication Sig azithromycin 500 MG tablet Take 2 tablets by mouth once for 1 dose. oyster shell calcium 1250 (500 Ca) MG tablet Take 1 tablet by mouth daily. MV-Min-Fe Fum-FA-DHA ( 1 PO) Take by mouth daily. Allergies Allergies Allergen Reactions Mushroom Extract Complex Hives Penicillins Hives Physical Exam VITAL SIGNS: BP 141/90 Pulse 74 Temp 98.1 F (36.7 C) (Oral) Resp 16 Ht 1.727 m (5' 8 ) Wt103.9 kg (229 lb) SpO2 98% BMI 34.82 kg/m Smoking Status Never Constitutional: Well developed, No acute distress, Non-toxic appearance. HENT: Normocephalic, Atraumatic, Bilateral external ears normal, No oral exudates. Eyes: PERRLA, Conjunctiva normal, No discharge. Neck: Normal range of motion, No tenderness, Supple, No nuchal rigidity. Lymphatic: No lymphadenopathy noted. Cardiovascular: Regular, normal heart rate, Normal rhythm, No murmur. Thorax & Lungs: Equal breath sounds bilateral, No respiratory distress, No rhonchi, rales or wheezing, Abdomen: Bowel sounds normal, Soft, nondistended. No tenderness, No masses, No guarding. Skin: Warm, Dry, No erythema, No rash. Back: No CVA tenderness. Extremities: No tenderness, No cyanosis No edema. Musculoskeletal: No tenderness to palpation or major deformities noted. Neurologic: Alert & oriented x 4, No focal deficits noted. Labs/Radiology/Procedures Medications - No data to display No results found for this visit on 08/30/22. No orders to display Course & Medical Decision Making Pertinent Labs & Imaging studies reviewed and interpreted by myself. (See chart for details) I have reviewed the nursing triage summary. This a 22-year-old female who presented to the emergency department requesting STI testing. The patient tested positive for chlamydia via PCR yesterday. I had a long discussion with the patient aboutthe specificity of the PCR testing. She repeatedly requests repeat testing. Therefore, urine was obtained for a repeat PCR test. She declined treatment for chlamydia while in the ED. I stressed the importance of treatment knowing she is . I have sent a prescription to the pharmacy and encouraged her to fill the prescription and take accordingly. She states her significant other has also signed into the emergency department and will be tested for STI. I encouraged follow-up with her freight manager. I have discussed the potential need for return to the emergency department for reevaluation if symptoms change. Final Impression 1. Chlamydia vaginitis/cervicitis Electronically Signed By: Nicole Guerrero DO 08/30/2022 Nicole Guerrero DO 08/30/22 1633 [id number] Discharge instructions* Discharge Instructions * Nicole Guerrero DO - 08/30/2022 4:30 PM EST Contact your freight manager in 2 days for results of the testing done in the ED. Fill the prescription for azithromycin and take as directed. Return to the emergency department if you have severe pelvic pain, vaginal discharge, fever or other problems. * Attachments The following attachments cannot be sent through Care Everywhere. * Sexually Transmitted Infections (STIs) ([facility]) (Portuguese) * Gonorrhea and Chlamydia Tests (Portuguese) documented in this [facility]02-11-2023 Emergency department Note* Samantha Mondragon RN - 08/30/2022 4:11 PM EST Patient ambulated to the ED for a complaint of testing positive for chlamydia. Patient states that she was seen on her OBGYN on 08/28/2021 for a appointment and she was swabbed for STD's at that time. Patient states that she has been swabbed for STD's very time that she has a new sexual partner and she has never been positive for any STD's/STI's in the past. Patient states that her husbandhas also been tested and negative as well. Patient read online that if she has bacterial vaginosis that she could test false positive for chlamydia. Patient states that she has had a lot of vaginal discharge. 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 documented [facility]* Diagnosis Encounter for supervision of normal first in second trimester Supervision of normal first documented in this encounter [facility] noteNo assessment information availableK[facility] Work Phone: Evaluation note* Diagnosis Onset Date Resolution Status Status post normal vaginal delivery acute [facility] Work Phone: Hospital Discharge instructions Additional Instructions The Ciprodex drops in the right ear as prescribed. Avoid getting your ear wet in the hot tub until the infection resolves. You can take Motrin Tylenol as needed for pain. Follow- up with your PCP for any persistent symptoms 5 7 days.[facility] Work Phone: Hospital Discharge instructions No data available for this section [facility] Progress note No data available for this section [facility] Summary Purpose Family History No Family History Records Found Relationship Condition Age at Onset Recorded Date/T daphne Not Specified Malignant neoplasm of colon Unknown Diabetes mellitus Unknown Lupus Unknown High blood cholesterol Unknown Heart disease Unknown Malignant neoplasm of breast Unknown Advance Directives No Advanced Directives Records Found Advance Directive Response Recorded Date/ Time Advance Directives No October 08, 023 12:10pm Chief Complaint and Reason for Visit Chief Complaint IUP (Intrauterine Pr egnancy) Chief Complaint 35 wks iup, Abd disc omfort Chief Complaint 35 wks iup, Abd disc omfort Z3A.36 Headache,congestion,38 wks R Ear Pain Chief Complaint 35 wks iup, Abd disc omfort Z3A.36 Headache,congestion,38 wks R Ear Pain IUP (Intrauterine ) Reason for Visit Status post normal v aginal delivery Chief Complaint 35 wks iup, Abd disc omfort Z3A.36 Headache,congestion,38 wks R Ear Pain IUP (Intrauterine ) z39.1 Reason for Visit Status post normal v aginal delivery Additional Source Comments Reason for Visit (unrecogniz ed section and content) Reason Comments Sexually Transmitted Disease Specialty Diagnoses / Procedures Referred By Lilia t Referred To Contact Diagnoses Encounter for supervision of normal first in second trimester Procedures US OB GROWTH/DATING > 14WEEKS US OB TRANSVAGINAL/DATING Dany Camacho, [facility] [address] [address] Referral ID Status Reason Start Date Expiration Date Visits Re quested Visits Authorized [id number] Closed 08/29/2022 09/23/2023 1 1 Care Teams (unrecognized sec tion and content) Clerical Support Relationship Specialty Start Date End Date Self, Self PCP - General Other 12/05/21 Clerical Support Relationship Specialty Start Date End Date Self, Self PCP - General Other 12/05/21 Team Status: Active Member Role Status Dates PHYSICIAN NO FAMILY Primary Care Provider Active Team Status: Inactive Member Role Status Dates PHYSICIAN NO FAMILY Primary Care Provider Active Nickolas Ewing MD Attending Provider Active Team Status: Inactive Member Role Status Dates PHYSICIAN NO FAMILY Primary Care Provider Active Esperanza Farah DO Attending Provider Active Team Status: Inactive Member Role Status Dates Dani Henderson DO Attending Provider Active Team Status: Inactive Member Role Status Dates PHYSICIAN NO FAMILY Primary Care Provider Active Milli Rojas , SUPERVISOR CAB- Emergency Provider Active Team Status: Inactive Member Role Status Dates PHYSICIAN NO FAMILY Primary Care Provider Active Stone Victoria , Emergency Provider Active Team Status: Inactive Member Role Status Dates PHYSICIAN NO FAMILY Primary Care Provider Active Dani Henderson DO Admit Provider, Attending Provider Active Team Status: Inactive Member Role Status Dates PHYSICIAN NO FAMILY Primary Care Provider Active Jackie Gates MD Attending Provider Active INFORMATION SOURCE (unrecogn ized section and content) DATE CREATED AUTHOR 09/13/2022 [facility] ([place]) DATE CREATED AUTHOR AUTHOR'S ORGANIZ ATION 03/11/2023 [facility] DATE CREATED AUTHOR AUTHOR'S ORGANIZ ATION 04/06/2023 [facility] DATE CREATED AUTHOR AUTHOR'S ORGANIZ ATION 02/03/2024 [facility] EPIC Goals (unrecognized section and content) Goals may be documented in a n alternate sectionGoals may be documented in an alternate sectionGoals may be documented in an alternate sectionGoals may be documented in an alternate section No data available for this section FOR RECORDS PERTAINING TO PATIENTS WHO ARE OR HAVE BEEN ENROLLED IN A CHEMICAL DEPENDENCY/SUBSTANCEABUSE PROGRAM, SOME INFORMATION MAY BE OMITTED. This clinical summary was aggregated from multiple sources. Caution should be exercised in using it in the provision of clinical care. This summary normalizes information from multiple sources, and as a consequence, information in this document may materially change the coding, format and clinical context of patient data. In addition, data may be omitted in some cases. CLINICAL DECISIONS SHOULD BE BASED ON THE PRIMARY CLINICAL RECORDS. [facility]. provides no warranty or guarantee of the accuracy or completeness of information in this document.
--- NOTE | 2024-06-13 20:23 | ED_ITS ---
HPI - Skin/Abscess/Foreign Bdy General Chief complaint: Skin/Abscess/Foreign Body Stated complaint: rash Time Seen by Provider: 06/13/24 20:12 Source: patient Mode of arrival: walk-in History of Present Illness HPI narrative: rash left FA for past month . Rash is pruritic and spreading on the FA. she is scratching it more and concern it may start to spread elsewhere. She has tried OTC cream with benefit. No fever or pain or drainage Related Data Previous Rx's ?Medication ?Instructions ?Recorded methylprednisolone 4 mg tablets in 4 mg PO DAILY 6 days #21 ea 11/14/23 a dose pack (Medrol (Ketan)) ketorolac 10 mg tablet 10 mg PO TID PRN pain #10 tabs 12/23/23 methocarbamol 750 mg tablet 750 mg PO TID PRN pain #20 tabs 12/23/23 Allergies Allergy/AdvReac Type Severity Reaction Status Date / Time Penicillins AdvReac Mild Hives Verified 06/13/24 20:15 Review of Systems 2 ROS0 Status of ROS 10 or more systems reviewed and unremark able except as noted in history and below PFSH PFSH Social History Little interest or pleasure in doing things: not at all Feeling down, depressed, or hopeless: not at all Exam Constitutional Vital Signs, click to edit/add: Last Vital Signs Temp 98.9 F 06/13/24 20:15 Pulse 77 06/13/24 20:15 Resp 16 06/13/24 20:15 BP 134/90 06/13/24 20:15 Pulse Ox 97 06/13/24 20:15 O2 Del Method Room Air 06/13/24 20:15 Common normals: no apparent distress, average body habitus, oriented x3, no limitations, healthy appearing, alert and well nourished [facility] Common normals: normocephalic and head/scalp atraumatic Eye Common normals: PERRL, EOMs intact bilaterally and conjunctivae normal Respiratory Common normals: normal respiratory effort, no retractions, no use of accessory muscles and clear to auscultation bilaterally Cardio Common normals: regular rate, regular rhythm, S1 normal heart sound and S2 normal heart sound Extremity Extremity image (front): 2 1. dry erythematous coarse rash left forearm. nontender Neuro Common normals: oriented x3, CN's II-XII intact bilaterally, moves all extremities and no focal motor deficits Psych Appearance: grossly normal Course Vital Signs Vital signs: Vital Signs Temperature 98.9 F 06/13/24 20:15 Pulse Rate 77 06/13/24 20:15 Respiratory Rate 16 06/13/24 20:15 Blood Pressure 134/90 06/13/24 20:15 Pulse Oximetry 97 06/13/24 20:15 Oxygen Delivery Method Room Air 06/13/24 20:15 Temperature 98.9 F 06/13/24 20:15 Pulse Rate 77 06/13/24 20:15 Respiratory Rate 16 06/13/24 20:15 Blood Pressure 134/90 06/13/24 20:15 Pulse Oximetry 97 06/13/24 20:15 Oxygen Delivery Method Room Air 06/13/24 20:15 MDM - Skin/Abscess/Foreign Bdy MDM Narrative Medical decision making narrative: presents with rash left FA for one month that is increasing. Appears to be an allergic type rash or acute eczematous rash. Will plan to treat with oral and topical steroids and have her followup with her doctor Discharge Plan Discharge Chief Complaint: Skin/Abscess/Foreign Body Clinical Impression: Rash Patient Disposition: Home, Self-Care Prescriptions / Home Meds: No Action methylprednisolone [Medrol (Ketan)] 4 mg tablets,dose pack 4 mg PO DAILY 6 Days Qty: 21 0RF Rx Instructions: as directed ketorolac 10 mg tablet 10 mg PO TID PRN (Reason: pain) Qty: 10 0RF methocarbamol 750 mg tablet 750 mg PO TID PRN (Reason: pain) Qty: 20 0RF Print Language: Russian Instructions: Acute Rash (ED) Referrals: CESIA FELIX [Primary Care Provider] - 1 week
[2024-06-13] MEDS: PREDNISONE 20 MG TABLET 40 MG PO (20:38)
[2024-06-13 20:42] VITALS: PULSE 70; O2SAT 99
== END 2024-06-13 20:42 | disposition home or self-care (01) ==
PROVIDERS: Emergency Provider Internal Medicine; PCP Internal Medicine
DX: R21 Rash and other nonspecific skin eruption (principal)
CPT/HCPCS: 99283; J7512

== ENCOUNTER 2024-07-23 17:38 | Emergency (ER) | payer OTHER, SELFPAY ==
[2024-07-23 17:48] VITALS: BP 141/82; PULSE 113; TEMP 36.8; O2SAT 99; BMI 41.3
--- NOTE | 2024-07-23 17:56 | PC.NURSE ---
coughs so hard it triggers vomiting.
--- NOTE | 2024-07-23 17:57 | XR_ITS ---
The [address] [address] Patient Name: LATONYA MUIR MRN: [id number] date: 2000 Sex: F Assigned Patient Location: ER Current Patient Location: ED.MAIN Accession/Order Number: [id number] Exam Date: 07/23/2024 19:04 Report Date: 07/23/2024 19:35 At the request of: HELGA COOPER Procedure: XR chest 2V EXAM: XR chest 2V HISTORY: cough and abnormal lung sounds COMPARISON: None. TECHNIQUE: Upright PA and lateral chest x-ray FINDINGS: The heart is not enlarged and the vasculature is not distended. No acute infiltrate, effusion or pneumothorax is identified. The osseous structures are grossly intact. XR/XR chest 2V IMPRESSION: No acute infiltrate or evidence of cardiac decompensation. Electronically authenticated by: RAFIQ COTTO Date: 07/23/2024 19:35
[2024-07-23 19:15] VITALS: BP 137/79; PULSE 117; O2SAT 100
[2024-07-23 19:16] VITALS: O2SAT 100
--- NOTE | 2024-07-23 19:22 | ED.GENADUL1 ---
HPI HPI - General Adult General Chief complaint: Shortness of Breath/Dyspnea Stated complaint: COUGH, HEADACHE Time Seen by Provider: 07/23/24 19:09 Source: patient Mode of arrival: walk-in History of Present Illness HPI narrative: Patient is a 23-year-old female who presents to the emergency department for 3-week history of cough. She describes the cough as nonproductive. She has had no objective fevers. She does not currently have a doctor so she has not been seen for the symptoms or been placed on any medications. She declined a test prior to x-ray, she states she is unsure if she may be but does not think she needs to be tested and signed a waiver. She has heard crackling in her chest which prompted her to come to the emergency department today. Related Data Home Medications ?Medication ?Instructions ?Recorded ?Confirmed No Known Home Medications 07/23/24 07/23/24 Previous Rx's ?Medication ?Instructions ?Recorded albuterol sulfate 90 mcg/actuation 2 inh inhalation Q4H PRN shortness 07/23/24 aerosol inhaler of breath or wheezing #8.5 grams nfxnbjgljkltcwb-txlpwgvpnxwjwfr-KX 10 ml PO Q6H PRN cold symptoms 07/23/24 2 mg-30 mg-10 mg/5 mL oral syrup #200 mL (Bromfed DM) cefdinir 300 mg capsule 300 mg PO BID 10 days #20 caps 07/23/24 prednisone 20 mg tablet See Rx Instructions .Route 07/23/24 .COMPLEX #12 tabs Allergies Allergy/AdvReac Type Severity Reaction Status Date / Time Penicillins AdvReac Mild Hives Verified 07/23/24 17:48 mushrooms Allergy Mild hives Uncoded 07/23/24 17:48 Opioid HPI Opioid Management Most Recent Opioid Data: No Data to Display Review of Systems ROS Constitutional Denies: fever or chills Ears, nose, mouth, and throat Denies: throat pain or nasal congestion Respiratory Reports: cough and wheezing; Denies: shortness of breath Gastrointestinal Denies: nausea or vomiting Integumentary/Breast Denies: rash Neurological Reports: headache; Denies: numbness in extremities or weakness in extremities Hematologic/Lymphatic Denies: easy bruising or easy bleeding PFSH PFSH Social History Little interest or pleasure in doing things: not at all Feeling down, depressed, or hopeless: not at all Exam Narrative Exam Narrative: Gen.: Awake, alert, in no distress Head: Normocephalic, atraumatic ENT: Moist mucous membranes, bilateral TMs are fluid-filled without erythema or injection. Tonsillar edema that is symmetric with no pharyngeal erythema or exudate noted. Uvula midline with clear speech. No trismus or drooling Respiratory: No respiratory distress, lungs clear bilaterally, scattered rhonchi with no wheezing or stridor. Speaks in full sentences Cardio: Regular rate and rhythm Extremities: Moves extremities equally Psych: Normal mood and affect Neuro: No focal neuro deficit Skin: Warm, dry, intact Constitutional Vital Signs, click to edit/add: Last Vital Signs Temp 98.3 F 07/23/24 17:48 Pulse 117 H 07/23/24 19:15 Resp 18 07/23/24 19:16 BP 137/79 07/23/24 19:15 Pulse Ox 100 07/23/24 19:16 O2 Del Method Room Air 07/23/24 19:16 Course Vital Signs Vital signs: Vital Signs Temperature 98.3 F 07/23/24 17:48 Pulse Rate 113 H 07/23/24 17:48 Respiratory Rate 20 07/23/24 17:48 Blood Pressure 141/82 07/23/24 17:48 Pulse Oximetry 99 07/23/24 17:48 Temperature 98.3 F 07/23/24 17:48 Pulse Rate 117 H 07/23/24 19:15 Respiratory Rate 18 07/23/24 19:16 Blood Pressure 137/79 07/23/24 19:15 Pulse Oximetry 100 07/23/24 19:16 Oxygen Delivery Method Room Air 07/23/24 19:16 Medical Decision Making MDM Narrative Medical decision making narrative: Patient declined a test prior to medication administration. Two-view chest x-ray with no evidence of clear consolidated infiltrate. She is treated based on the duration of her symptoms with cefdinir, Bromfed-DM, albuterol and prednisone. She was given these prescriptions for home as well. Follow-up with PCP and return to the emergency department if symptoms change or worsen. SUPERVISED APC VISIT, PHYSICIAN ATTESTATION: Based on the medical record the care appears appropriate. ? Medical Records Medical records reviewed: Yes I reviewed the patient's medical records Imaging Data Chest x-ray: Attestation: I have reviewed the pertinent imaging results. Discharge Plan Discharge Chief Complaint: Shortness of Breath/Dyspnea Clinical Impression: Upper respiratory infection, Cough Patient Disposition: Home, Self-Care Time of Disposition Decision: 19:16 Condition: Good Prescriptions / Home Meds: New prednisone 20 mg tablet See Rx Instructions .ROUTE .COMPLEX Qty: 12 0RF Rx Instructions: 3 tabs daily for 2 days, then 2 tabs daily for 2 days, then 1 tab daily for 2 days albuterol sulfate 90 mcg/actuation HFA aerosol inhaler 2 inh inhalation Q4H PRN (Reason: shortness of breath or wheezing) Qty: 8.5 0RF ipkvfrwodkcmmmx-kjfanxnll-XW [Bromfed DM] 2-30-10 mg/5 mL syrup 10 ml PO Q6H PRN (Reason: cold symptoms) Qty: 200 0RF cefdinir 300 mg capsule 300 mg PO BID 10 Days Qty: 20 0RF No Action No Known Home Medications Print Language: Lithuanian Instructions: Upper Respiratory Infection (ED) Referrals: CESIA FELIX [Primary Care Provider] - 1 week
[2024-07-23] MEDS: ALBUTEROL SULFATE 2.5 MG/3 ML VIAL NEB IH (19:30)
[2024-07-23 19:32] VITALS: PULSE 110; O2SAT 98
[2024-07-23] MEDS: PREDNISONE 20 MG TABLET 60 MG PO (19:54)
[2024-07-23] MEDS: CEFDINIR 300 MG CAPSULE 600 MG PO (19:54)
== END 2024-07-23 20:00 | disposition home or self-care (01) ==
PROVIDERS: Emergency Provider Emergency Medicine; PCP Internal Medicine
DX: J06.9 Acute upper respiratory infection, unspecified (principal); R05.9 Cough, unspecified; R51.9 Headache, unspecified
CPT/HCPCS: 71046; 94640; 99284; J7512

== ENCOUNTER 2024-07-25 10:01 | Outpatient (OUT) | payer OTHER, SELFPAY ==
[2024-07-25 12:01] LABS: HCG Quantitative 2945 mIU/mL
== END 2024-07-25 10:02 | disposition home or self-care (01) ==
PROVIDERS: Visit Provider Obstetrics & Gynecology
DX: Z32.00 Encounter for pregnancy test, result unknown (principal)
CPT/HCPCS: 36415; 84702